=== PATIENT | male | born 1945 | race Caucasian/White ===

== ENCOUNTER 2021-01-19 16:20 | Emergency (ER) | payer MEDICARE, SELFPAY ==
[2021-01-19 16:23] VITALS: BP 166/73; PULSE 93; RESP 17; TEMP 36.3; O2SAT 97; BMI 34.7
--- NOTE | 2021-01-19 16:32 | EKG12_ITS ---
Test Reason : CP Blood Pressure : / mmHG Vent. Rate : 095 BPM Atrial Rate : 095 BPM P-R Int : 180 ms QRS Dur : 096 ms QT Int : 374 ms P-R-T Axes : 061 009 030 degrees QTc Int : 469 ms Normal sinus rhythm Nonspecific ST abnormality Abnormal ECG Confirmed by VANESSA KIM, MAGI ([id number]), copy editor SOPHIA ROB ([id number]) on 01/24/2021 8:28:05 AM Referred By: JUAN JOSE Confirmed By:KALIE MENDEZ MD
--- NOTE | 2021-01-19 16:35 | NURSING ---
NO OLD EKGS
--- NOTE | 2021-01-19 16:43 | RAD_ITS ---
STUDY: X-RAY CHEST REASON FOR EXAM: Male, 75 years old. EPIGASTRIC SHARP CHEST PAIN STARTING THIS AM. TECHNIQUE: Single AP portable view of the chest. COMPARISON: None. FINDINGS: The lungs are clear and expanded. There is no demonstrated pleural abnormality. Normal size heart. Normal mediastinum and nidhi. Normal visualized pulmonary arteries. There is atherosclerotic calcification of the aortic arch with tortuosity. There are diffuse degenerative changes of the visualized thoracic spine. There is degenerative osteoarthritis of the bilateral shoulders. There is no demonstrated abnormality of the visualized soft tissue structures of the upper abdomen. RAD/Chest 1 View (Portable) IMPRESSION: Degenerative changes, as described above. No demonstrated acute cardiopulmonary process. Electronically Signed: Cyrus Prather MD at 17:18 EDT , Service support ,
--- NOTE | 2021-01-19 16:44 | ED.VIS.CHEST ---
HPI History of Present Illness Chief Complaint: Chest Pain Narrative Narrative: Patient presents from his primary care physician's office to be evaluated for chest pain that he had this morning at around 9:00 when he woke up. This was over 7 hours ago. He denies any significant past medical history. He states yesterday in the evening he felt minimally short of breath after he walked up a flight of stairs. He denies any fevers or chills. No cough. This morning when he woke up, he states he had chest pain. He described it as both sharp and stabbing, and dull and achy. It only lasted a few seconds, or perhaps half a minute as he states. He denies any leg swelling. No nausea or vomiting. No diaphoresis. He had an appointment with his primary care physician today/this afternoon and he mentioned the chest pain that was very fleeting. He was sent to the emergency department to have it evaluated. He is currently pain-free. He denied any exacerbating or alleviating factors. [facility] Medical History (Updated 01/19/21 @ 19:21 by Yusef Hilario MD) Hypothyroidism Allergy/AdvReac Type Severity Reaction Status Date / Time No Known Allergies Allergy Verified 01/19/21 16:23 Social History Smoking Status: Never smoker ROS ROS ED ROS Narrative Constitutional: No fever, no chills. HEENT: No sore throat. No neck pain. No loss of vision. No rhinorrhea. Cardiovascular: Positive chest pain. No radiation. Only lasted up to half a minute. Currently asymptomatic. No palpitations. No pedal edema. Respiratory: No cough, no shortness of breath. Abdominal: No abdominal pain. No nausea. No vomiting. Genitourinary: No dysuria. No hematuria. Musculoskeletal: No myalgias. No arthralgias. Neurologic: No headaches. No dizziness. No lightheadedness. No paresthesias. Skin: No rash. No change in color. Psychiatric: No depression. No anxiety. EXAM Physical Exam Narrative Exam Narrative: Afebrile. Vital signs noted. HEENT: Normocephalic. Atraumatic. PERRL, EOMI. Neck soft and supple. No point tenderness or step off. Cardiovascular: Regular rate and rhythm. No murmurs, rubs, or gallops appreciated. Respiratory: No tachypnea. Lungs clear to auscultation bilaterally. Gastrointestinal: Abdomen soft, nontender, with normoactive bowel sounds. No rebound or guarding. Neurological: Awake. Alert. Nonfocal, nonlateralizing. Skin: No rash. Normal color. No pallor. Musculoskeletal: No pedal edema. Full range of motion extremities. Const Vital Signs: 01/19/21 16:23 01/19/21 16:53 01/19/21 19:00 Temperature 97.4 F L Temperature Source Temporal Pulse Rate 93 72 Respiratory Rate 17 Respiratory Effort Normal Non-Labored Blood Pressure 166/73 H 143/79 H Blood Pressure Mean 104 100 Pulse Ox 97 98 96 Oxygen Delivery Method Room Air Room Air Room Air MDM MDM MDM Narrative Medical decision making narrative: EKG demonstrates normal sinus rhythm at 95 bpm without ectopy or acute ST changes. No evidence of acute STEMI. Nursing protocol was instituted. We will obtain a chest x-ray and laboratory work. CBC is grossly normal with normal white count of 5.2, hemoglobin stable at 14.9, hematocrit 44. Basic metabolic panel is grossly unremarkable suffer elevated BUN of 21.6 and glucose appropriately elevated at 142. Initial high-sensitivity troponin is negative at 5. Although this is a 6-hour troponin, for good measure I did add a 2-hour troponin and it is also negative at 5. Chest x-ray shows degenerative changes but no acute cardiopulmonary process. At this point in time, I feel he be discharged safely home with follow-up back to his primary care provider. Patient feels well and would like to be discharged. Return instructions to the emergency department were reviewed. Disposition is discharged home in stable condition. Lab Data Attestation: I reviewed the patient's lab results. Labs: Laboratory Results - last 24 hr 01/19/21 01/19/21 01/19/21 16:30 16:30 18:29 WBC 5.2 RBC 5.07 Hgb 14.9 Hct 44.0 MCV 86.8 MCH 29.4 MCHC 33.9 RDW Std Deviation 39.8 RDW Coeff of Whit 12.8 Plt Count 209 MPV 9.9 Immature Gran % (Auto) 0.200 Neut % (Auto) 57.1 Lymph % (Auto) 28.1 Grand % (Auto) 12.3 H Eos % (Auto) 1.5 Baso % (Auto) 0.8 Absolute Neuts (auto) 3.0 Absolute Lymphs (auto) 1.46 Nucleated RBC % 0 Sodium 140 Potassium 3.7 Chloride 106 Carbon Dioxide 29.0 Anion Gap 5 BUN 19 H Creatinine 0.88 Estim Creat Clear Calc 63.44 Est GFR (MDRD) Af Amer 108 Est GFR (MDRD) Non-Af 89 BUN/Creatinine Ratio 21.6 H Glucose 142 H Calcium 9.1 Troponin I High Sens 5 5 Radiography Diagnostic Testing: Radiology Impression Chest X-Ray 01/19/21 16:43 IMPRESSION: Degenerative changes, as described above. No demonstrated acute cardiopulmonary process. Electronically Signed: Cyrus Prather MD at 17:18 EDT , Service support , Discharge Plan Triage Chief Complaint: Chest Pain ED Provider: Yusef Hilario Dx/Rx/DC Orders Clinical Impression: Chest pain Instructions: ED Chest Pain, Noncardiac, ED Chest Pain, Uncertain Cause Primary Care Provider: Michael Kellogg Referrals: Michael Kellogg MD [Primary Care Provider] - 01/23/21 Disposition Disposition: Home, Self Care
[2021-01-19 16:46] LABS: Absolute Lymphocyte Count 1.46 X10^3/uL (0.83-4.51); Basophil# 0.04 X10^3/uL; Basophil% 0.8 % (0-1); Eosinophil# 0.08 X10^3/uL; Eosinophils% 1.5 % (0-5); Hemoglobin 14.9 g/dL (13.0-16.5); Lymphocyte # 1.46 X10^3/ul (0.83-4.51); Lymphocyte % 28.1 % (19-41); Mean Corp Hgb Conc 33.9 g/dL (32-36); Mean Corpuscular Hgb 29.4 pg (27.0-32.0); Mean Corpuscular Volume 86.8 fL (80-94); Mean Platelet Vol. 9.9 fl (6.2-12.0); Monocyte# 0.64 X10^3/uL; Monocyte% 12.3 % (0-10); NRBC Flagged by Analyzer 0 % (0-5); Neutrophil # 2.96 X10^3/uL (2.7-7.7); Neutrophil % 57.1 % (47-70); Platelet Count 209 K/mm3 (150-450); RBC Distribution Width CV 12.8 % (11.6-14.6); RBC Distribution Width SD 39.8 fl (35.1-43.9); Red Blood Count 5.07 M/mm3 (4.6-6.2); White Blood Count 5.2 K/mm3 (4.4-11.0)
[2021-01-19 16:53] VITALS: O2SAT 98
[2021-01-19 17:15] LABS: Anion Gap 5 (5-15); BUN 19 mg/dL (7-18); BUN/Creat Ratio 21.6 RATIO (10-20); Calcium,Total 9.1 mg/dL (8.5-10.1); Chloride 106 mmol/L (98-107); Creatinine, Serum 0.88 mg/dL (0.70-1.30); EST Glomerular Filtration Rate 89 mL/min (>60); Est Glom Filt Rate - Afr Amer 108 mL/min (>60); Estimated Creatinine Clearance 63.44 ml/min; Glucose 142 mg/dL (74-106); Potassium 3.7 mmol/L (3.5-5.1); Sodium Level 140 mmol/L (136-145); Troponin-I HS 5 pg/mL (3.0-78.0)
[2021-01-19 18:48] LABS: Troponin-I HS 5 pg/mL (3.0-78.0)
[2021-01-19 19:00] VITALS: BP 143/79; PULSE 72; O2SAT 96
== END 2021-01-19 19:29 | disposition home or self-care (01) ==
PROVIDERS: Emergency Provider Emergency Medicine; PCP Internal Medicine
DX: R07.9 Chest pain, unspecified (principal); R06.02 Shortness of breath
CPT/HCPCS: 71045; 80048; 84484; 85025; 93005; 99284; A4216

== ENCOUNTER → 2021-05-10 15:49 | Outpatient (CLI) | payer MEDICARE, OTHER, SELFPAY ==
[2021-05-10 16:54] LABS: Absolute Lymphocyte Count 1.47 X10^3/uL (0.83-4.51); Basophil# 0.02 X10^3/uL; Basophil% 0.3 % (0-1); Eosinophil# 0.09 X10^3/uL; Eosinophils% 1.4 % (0-5); Hematocrit 44.2 % (40-54); Hemoglobin 15.2 g/dL (13.0-16.5); Lymphocyte # 1.47 X10^3/ul (0.83-4.51); Lymphocyte % 23.6 % (19-41); Mean Corp Hgb Conc 34.4 g/dL (32-36); Mean Corpuscular Hgb 29.7 pg (27.0-32.0); Mean Corpuscular Volume 86.5 fL (80-94); Mean Platelet Vol. 10.1 fl (6.2-12.0); Monocyte# 0.65 X10^3/uL; Monocyte% 10.4 % (0-10); NRBC Flagged by Analyzer 0 % (0-5); Neutrophil % 64.1 % (47-70); Platelet Count 240 K/mm3 (150-450); RBC Distribution Width CV 12.8 % (11.6-14.6); RBC Distribution Width SD 40.4 fl (35.1-43.9); Red Blood Count 5.11 M/mm3 (4.6-6.2); White Blood Count 6.2 K/mm3 (4.4-11.0)
[2021-05-10 16:56] LABS: Anion Gap 9 (5-15); BUN 17 mg/dL (7-18); BUN/Creat Ratio 17.6 RATIO (10-20); Calcium,Total 9.5 mg/dL (8.5-10.1); Chloride 104 mmol/L (98-107); Creatinine, Serum 0.97 mg/dL (0.70-1.30); EST Glomerular Filtration Rate 80 mL/min (>60); Est Glom Filt Rate - Afr Amer 97 mL/min (>60); Glucose 100 mg/dL (74-106); Potassium 3.9 mmol/L (3.5-5.1); Sodium Level 142 mmol/L (136-145)
[2021-05-10 16:57] LABS: Prothrombin Time (Protime)PT. 12.8 SECONDS (11.7-14.9)
[2021-05-10 16:58] LABS: Partial Thromboplast Time 26.2 Seconds (24.1-36.2)
== END ==
PROVIDERS: PCP Internal Medicine; Referring Provider Internal Medicine Cardiovascular Disease; Visit Provider Internal Medicine Cardiovascular Disease
DX: R09.89 Other specified symptoms and signs involving the circulatory and respiratory systems (principal); R94.39 Abnormal result of other cardiovascular function study; R07.9 Chest pain, unspecified; I35.0 Nonrheumatic aortic (valve) stenosis; I10 Essential (primary) hypertension; E78.2 Mixed hyperlipidemia
CPT/HCPCS: 80048; 85025; 85610; 85730

== ENCOUNTER → 2021-05-17 12:50 | Outpatient (CLI) | payer MEDICARE, OTHER, SELFPAY ==
--- NOTE | 2021-05-17 13:03 | CDU_ITS ---
Reason For Study: CAROTID BRUIT Rt. Velocities/BP Lt. Velocities/BP Prox CCA 86.5/16.0 cm/sec. Prox CCA 103.8/21.3 cm/sec. Mid CCA 86.5/21.3 cm/sec. Mid CCA 152.6/35.9 cm/sec. Dist CCA 100.8/23.9 cm/sec. Dist CCA 159.9/35.9 cm/sec. Prox ICA 152.7/58.4 cm/sec. Prox ICA 174.0/48.9 cm/sec. Mid ICA 192.2/49.6 cm/sec. Mid ICA 122.2/41.8 cm/sec. Dist ICA 157.2/34.2 cm/sec. Dist ICA 89.3/29.0 cm/sec. Rt. ICA/CCA = 192.2/100.8=1.9. Lt. ICA/CCA = 174.0/159.9=1.1. Prox ECA 146.7/20.6 cm/sec. Prox ECA 103.1/14.5 cm/sec. Rt. Vert. 49.0/14.6 cm/sec. Lt. Vert. 60.3/12.0 cm/sec. Right Extracranial There is homogeneous, smooth atherosclerotic plaque noted in the right common carotid artery. There is heterogeneous, irregular atherosclerotic plaque noted in the right internal carotid artery. The tortuous nature of the right internal carotid artery may result in flow velocities overestimating the degree of stenosis. There is homogeneous, smooth atherosclerotic plaque noted in the right external carotid artery. Antegrade flow is noted in the right vertebral artery. Left Extracranial There is homogeneous, smooth atherosclerotic plaque noted in the left common carotid artery. There is heterogeneous, irregular atherosclerotic plaque noted in the left internal carotid artery. There is intimal thickening but no significant atherosclerotic plaque noted in the left external carotid artery. Antegrade flow is noted in the left vertebral artery. Procedure Carotid Duplex [id number]. This is a Carotid Duplex examination using B-mode, color flow and specral Doppler. The study was technically difficult. Due to body habitus. Exam performed in department. VL/Carotid Duplex Ultrasound Interpretation Summary Moderate (50-69%) stenosis right extracranial internal carotid. Moderate (50-69 %) stenosis left extracranial internal carotid. Flow within the vertebral arteries is antegrade bilaterally. Ordering Physician: Evans Leblanc Referring Physician: Michael Kellogg Performed By: Haylee Michaud, LU, RVT
== END ==
PROVIDERS: PCP Internal Medicine; Referring Provider Internal Medicine Cardiovascular Disease; Visit Provider Internal Medicine Cardiovascular Disease
DX: R09.89 Other specified symptoms and signs involving the circulatory and respiratory systems (principal); R94.39 Abnormal result of other cardiovascular function study; I35.0 Nonrheumatic aortic (valve) stenosis; E78.2 Mixed hyperlipidemia; R07.9 Chest pain, unspecified; I10 Essential (primary) hypertension
CPT/HCPCS: 93880

== ENCOUNTER 2021-06-02 07:21 | Day surgery (SDC) | payer MEDICARE, OTHER, SELFPAY ==
[2021-06-01 08:24] VITALS: BMI 33.0
--- NOTE | 2021-06-02 07:55 | PCM.HP.BLA ---
History and Physical Date of Admission: 06/02/21 [facility] [id number] [place], [place] [phone] OFFICE VISITDate of Service: 05/10/21 MR#:[id number]: Carlos CONTRERAS #:[id number] Provider:Dr. Evans Leblanc MDAge/Sex: 75/M Location:[facility]:Signed HPI HPI History of Present Illness Surgical H&P: Yes Details: This is a 75-year-old male originally from [place] who presents for outpatient cardiovascular consultation based upon concerns of a history of chest discomfort, cardiac murmur, and an abnormal [facility] echocardiogram and stress nuclear imaging study. The patient states that he has a home outside of [facility]. He has been staying in the [facility]. He has a home near [place], [place] where he spends the [place]. He visits his daughter who lives locally. He states that he had complained of some centralized chest aching which he thought may be related to acid reflux. This prompted a [facility] evaluation which included in January 2021 a stress nuclear imaging study. It appears that the patient exercised for 5 minutes achieving a peak heart rate of 134 bpm - 94% predicted maximal heart rate and a peak blood pressure of 170/82 mmHg and a peak metabolic capacity of 5 metabolic equivalents. His [place] treadmill score was reported at 5.0. His myocardial perfusion study stated that there was a perfusion defect in the mid inferolateral segment and all the remaining segments showed normal perfusion. It was listed as an abnormal study. There was notation that his left ventricular systolic function was normal. It appears that the patient has also undergone a [facility] transthoracic echocardiogram on 09-27-2020. At that time the left ventricle was reported as having normal systolic function with an LVEF of 56%, the right ventricle had normal size and systolic function, there was trace TR, the aortic valve was referred to as being mild aortic valve stenosis caused by a calcified valve with no aortic valve regurgitation at the time. The aortic valve area appears to been reported at approximately 1.2 cm?. The aortic root was reported as borderline dilated with the mid a sending aorta reported at 3.9 cm. It appears that he had a [facility] transthoracic echocardiogram in October 2018. At that point in time the left ventricle was normal with an LVEF of 60%, the aortic valve was reported with mild aortic valve stenosis with an aortic valve area 1.7 cm? and the aortic root was reported mildly dilated at 4.1 cm. He states that he return to [place] for an outpatient [facility] cardiology appointment to consider further evaluation of his stress test that was performed in January of this year. He states his appointment was canceled. Thus he sought outpatient evaluation with this office. He states that his discomfort was a somewhat centralized aching sensation. It did not necessarily radiate. It may have been associated with an element of shortness of breath/dyspnea. There was no nausea, emesis, or diaphoresis. His symptoms were more so with exertion as opposed to rest. He states he was given nitroglycerin sublingual by his [facility] physicians to use but he has not had to use them. He has not had any orthopnea or PND or ongoing peripheral pitting edema. There is been no near syncope or syncope. He had an ECG in the office today. He was noted to be in sinus rhythm with a low voltage QRS in the limb leads. There were no acute ECG changes. He states he does take his aspirin as well as his atorvastatin. Intake Vital Signs 05/10/21 14:15 Height 5 ft 7 in Weight: 211 lb 5 oz BMI 33.0 BP 142/78 H Blood Pressure Location Lt brachial Position Sitting Respiration 16 Pulse 80 Pulse Source Auscultation Intake Visit Reasons: ABN STRESS/REF. COLIN Office Administration Instructor Required: No Accompanied by: Self Allergies No Known Allergies Allergy (Verified 01/19/21 16:23) Medications aspirin 81 mg tablet,delayed release 81 mg PO DAILY 05/10/21 [History Confirmed 05/10/21] atorvastatin 20 mg tablet 20 mg PO DAILY #1 tab 05/10/21 [Rx Confirmed 05/10/21] fluticasone propionate 50 mcg/actuation nasal spray,suspension 2 spray INTRANASAL DAILY 05/10/21 [History Confirmed 05/10/21] levothyroxine 100 mcg tablet 100 mcg PO DAILY 05/10/21 [History Confirmed 05/10/21] nitroglycerin 0.4 mg sublingual tablet 0.4 mg SUBLINGUAL Q5-15M PRN 05/10/21 [History Confirmed 05/10/21] pantoprazole 40 mg tablet,delayed release 40 mg PO DAILY 05/10/21 [History Confirmed 05/10/21] [facility] Medical History (Updated 05/10/21 @ 15:[address] Evans Leblanc MD) Abnormal stress test Acquired hypothyroidism Bruit of left carotid artery Essential hypertension GERD (gastroesophageal reflux disease) Hypothyroidism Mixed hyperlipidemia Nonrheumatic aortic (valve) stenosis Surgical History History of appendectomy Family History Brother CAD (coronary artery disease) Myocardial infarction Social History Smoking Status: Never smoker alcohol intake: never details: occasional substance use type: does not use caffeine: Yes Type: coffee Number of servings: 2 ROS Const Const: Negative for fatigue, weakness, frequent falls, excessive sweating, weight gain or weight loss Eyes Eyes: Negative for transient loss of vision, blurry vision or change in vision ENT ENT: Negative for dizziness or balance problems Cardio Chest Pain: Yes (x1 episode) Character: other (mild pain) Onset: exercise Location: mid sternal Duration: brief Relieving: rest Palpitations: No Edema: None Muscle aches with walking: None Resp Respiratory: Positive for SOB with activity (occasional); Negative for SOB at rest GI GI: Negative vomiting or vomiting blood/hematemesis : Negative for hematuria Musc Musc: Negative for muscle aches/ myalgia, muscle weakness, joint pain or balance problems Skin Skin: Negative non-healing lesions or rash Neuro Neuro: Negative for dizziness, lightheadedness, orthostatic symptoms, frequent falls, weakness or blurry vision Julian Hematologic/Lymphatic: Negative for easy bleeding Endo Endo: Negative for fatigue or excessive sweating Psych Psych: Negative for anxiety or depression Allergy Allergy/Immunology: Negative for hives and Negative for rash Cardiology Exam Const Appearance: cooperative, healthy appearing, comfortable, no acute distress, well developed and well groomed Nutritional Appearance: overweight Orientation: alert, awake and oriented x3 Head Head: normal to inspection and normocephalic Ears: hearing grossly normal bilaterally Nose: external nose normal Face and Sinus: face symmetric Eyes Eyelids: eyelids normal Conjunctivae: conjunctivae normal Pupils: PERRL EOM: EOM intact bilaterally Neck Neck: normal visual inspection Carotids: normal carotid upstroke carotid endarterectomy: Left Chest Chest inspection: normal inspection of the chest, symmetric chest movement and normal respiratory effort Auscultation: Bilateral: Clear to Auscultation Cardio Palpation: normal PMI Rate: regular rate Rhythm: regular rhythm Heart sounds: S1 normal, S2 normal and murmur Murmur: Grade 3/6, harsh, mid systolic, crescendo and radiates to carotids GI GI: normal to inspection, soft and bowel sounds present Neuro General: patient alert, patient awake, patient oriented x3 and moves all extremities Skin Skin: no rashes or lesions noted Extremities Pulses: Normal: Right Radial Pulse and Left Radial Pulse Lower Extremity Edema: None: Bilateral Psych Psychological: normal affect Supplemental Info Supplemental Information Labs: No Data to Display Diagnostics: Electrocardiogram Chest X-Ray Pulmonary: No Data to Display Assessment and Plan Assessment and Plan (1) Chest pain: Status: Acute Orders: Orders: Left Heart Cath/COR/LV Percut Today Basic Metabolic Profile (BMP) Today Partial Thromboplast Time Today Prothrombin Time w/INR Today CBC W/Diff, Automated Today Carotid Duplex Ultrasound Today Plan - Dr. Evans Leblanc MD: The patient has had chest discomfort. He does describe chest discomfort which does sound suspicious for angina pectoris with exertional activity. He has already undergone [facility] noninvasive valuation with the findings as noted above. From a cardiac standpoint it would be reasonable to continue his medical management and proceed with further evaluation with diagnostic cardiac catheterization. The procedure and risk were discussed with him. He was agreeable to this approach. (2) Abnormal stress test: Status: Acute Orders: Orders: 12 Lead EKG performed by [facility] [place] Today Left Heart Cath/COR/LV Percut Today Basic Metabolic Profile (BMP) Today Partial Thromboplast Time Today Prothrombin Time w/INR Today CBC W/Diff, Automated Today Carotid Duplex Ultrasound Today Plan - Dr. Evans Leblanc MD: Again his stress myocardial perfusion study performed at [facility] was considered abnormal. He will continue medical therapy and proceed with further evaluation with diagnostic cardiac catheterization. (3) Nonrheumatic aortic (valve) stenosis: Status: Acute Comment: Mild per ECHO 09/27/20 Orders: Orders: Left Heart Cath/COR/LV Percut Today Basic Metabolic Profile (BMP) Today Partial Thromboplast Time Today Prothrombin Time w/INR Today CBC W/Diff, Automated Today Carotid Duplex Ultrasound Today Plan - Dr. Evans Leblanc MD: He does have what appears to be an element of aortic valve stenosis. Based upon his 2 previous [facility] echocardiograms it appears to be mild. This will need to be followed over time by history, exam, and echocardiographic studies. (4) Mixed hyperlipidemia: Status: Acute Orders: Orders: 12 Lead EKG performed by [facility] Today Left Heart Cath/COR/LV Percut Today Basic Metabolic Profile (BMP) Today Partial Thromboplast Time Today Prothrombin Time w/INR Today CBC W/Diff, Automated Today Carotid Duplex Ultrasound Today Plan - Dr. Evans Leblanc MD: He will remain on his lipid-lowering therapy. (5) Essential hypertension: Status: Acute Orders: Orders: 12 Lead EKG performed by [facility] Today Left Heart Cath/COR/LV Percut Today Basic Metabolic Profile (BMP) Today Partial Thromboplast Time Today Prothrombin Time w/INR Today CBC W/Diff, Automated Today Carotid Duplex Ultrasound Today Plan - Dr. Evans Leblanc MD: He had that his last [facility] outpatient visit on 03-06-2021 recorded his blood pressure to be 131/73 mmHg. That visit was with his primary care physician. He will continue to monitor his blood pressure for any significant changes that would warrant additional medical management. (6) Bruit of left carotid artery: Status: Acute Orders: Orders: Left Heart Cath/COR/LV Percut Today Basic Metabolic Profile (BMP) Today Partial Thromboplast Time Today Prothrombin Time w/INR Today CBC W/Diff, Automated Today Carotid Duplex Ultrasound Today Plan - Dr. Evans Leblanc MD: There is concern as to whether or not he has a left carotid artery bruit separate from extension of his cardiac murmur. Thus it was felt prudent that he undergo further evaluation with a carotid artery duplex study. Plan Details Additional Comments: The above was discussed with him at great length. He was agreeable to the aforementioned evaluation and care plan. Thank you for allowing me to participate in the care of your patient. Please don't hesitate to call if any issues arise. This note was generated using a voice recognition system and there may be incorrect words, spelling or punctuation that were not noted when reviewing the office note prior to saving. Follow Up: 05/10/21 (Pending Test Results ) COVID (Procedure Consent) Procedure Criteria Procedure Criteria: Yes Elective The surgeon/proceduralist and patient have discussed in detail the risk of exposure to and/or potential harm posed by the COVID-19 virus with having a surgery/procedure at this time versus the risk of delaying the surgery/procedure. It is not possible to know either the risk of delaying the surgery or procedure or chance of getting an infection with perfect accuracy, but a joint decision was made between the patient and the surgeon/proceduralist to proceed at this time with the scheduled surgery/procedure as indicated on the consent form. Coding Level of Care Code Off vis,new,level 5 Diagnoses Chest pain R07.9 Abnormal stress test R94.39 Nonrheumatic aortic (valve) stenosis I35.0 Mixed hyperlipidemia E78.2 Essential hypertension I10 Bruit of left carotid artery R09.89 Coding Level of Care Code Off vis,new,level 5 Diagnoses Chest pain R07.9 Abnormal stress test R94.39 Nonrheumatic aortic (valve) stenosis I35.0 Mixed hyperlipidemia E78.2 Essential hypertension I10 Bruit of left carotid artery R09.89 05/10/21 1539<Electronically signed by Evans Leblanc MD>Date Evans Leblanc MD Cosigner Signature:Date (if applicable) CC: Dr. Michael eKllogg MD ~ Assessment & Plan Addt'l Comments Update: The patient's clinical history/previous objective findings were reviewed. The plan at this time is to proceed with further evaluation with diagnostic cardiac catheterization (right/left) secondary to the aforementioned clinical concerns, abnormal stress nuclear imaging study, and abnormal transthoracic echocardiogram demonstrating findings of valvular heart disease with aortic valve stenosis. The procedure and risk were discussed with the patient. He was agreeable to this approach.
[2021-06-02 09:46] LABS: Base Excess 2 mmol/L (-2 to +2); Bicarbonate 26.2 mmol/L (22-26); Blood Gas Specimen Type ART; PO2 69 mmHG (75-100); SO2 94 % (95-99); Total Carbon Dioxide 28 mmol/L; pCO2 39.8 mmHg (35-45); pH 7.43 (7.35-7.45)
[2021-06-02 09:50] LABS: Blood Gas Specimen Type VEN; VBG BASE EXCESS 3 mmol/L (-1.0-3.5); VBG Bicarbonate 28 mmol/L (22-26); VBG PO2 41 mmHg (25-40); VBG SO2 74 % (50-70); VBG TCO2 30 mmol/L (23-33); VBG pCO2 48.3 mmHg (41-51); VBG pH 7.37 (7.32-7.42)
[2021-06-02 09:50] LABS: Blood Gas Specimen Type VEN; VBG BASE EXCESS 3 mmol/L (-1.0-3.5); VBG Bicarbonate 28 mmol/L (22-26); VBG PO2 42 mmHg (25-40); VBG SO2 75 % (50-70); VBG TCO2 30 mmol/L (23-33); VBG pCO2 47.7 mmHg (41-51); VBG pH 7.38 (7.32-7.42)
[2021-06-02 10:00] LABS: Blood Gas Specimen Type VEN; VBG BASE EXCESS 3 mmol/L (-1.0-3.5); VBG Bicarbonate 28 mmol/L (22-26); VBG PO2 41 mmHg (25-40); VBG SO2 75 % (50-70); VBG TCO2 29 mmol/L (23-33); VBG pCO2 45.5 mmHg (41-51)
--- NOTE | 2021-06-02 12:03 | CL.D_ITS ---
Patient Name: ERICK CONTRERAS Study Date: 06/02/2021 Performing: Evans Leblanc MD Ht: 66.92 inches 170 cm : 1945 Wt: 211.64 lbs 96 kg Age: 75 Gender: male BSA: 2.07 PROCEDURE(S) PERFORMED [id number])RHC/LHC/COR/LV CLINICAL PROFILE AND INDICATIONS Indications: Worsening Angina, Valvular Disease, Suspected CAD Heart Failure: None Stress/Imaging Date: 02/06/2021tress Test with SPECT MPI: Positive Intermediate Risk Angina Classification Anginal Classification w/in 2 Weeks: CCS III CAD Presentations: Other: worsening angina CONCLUSIONS Right heart pressures - Normal Intracardiac shunting: None Normal Left Ventricular End Diastolic Pressure Normal LV size, wall motion,and systolic function LVEF: by LV gram 60 % [place] Multivessel CAD Aortic Valve Stenosis- Mild - Moderate Aortic Root dilated RECOMMENDATIONS Risk factor modification Medical therapy Referred for immediate PCI Comment: The aforementioned procedure was performed with the assistance of Dr. Barton of [facility] DESCRIPTION OF PROCEDURE The patient arrived to the procedure lab. The risks and benefits of the procedure as well as a full d escription of our services here and current unavailability of surgical backup were fully explained to the patient and/or their significant other prior to the catheterization. The Timeout was completed, verifying the correct patient and procedure. The patient's procedural site was prepped and draped in the usual fashion. Local anesthetic was given subcutaneously to right radial region with Lidocaine 2% . Using a modified Seldinger technique, arterial access was obtained via the right radial artery, a 6 Fr sheath was inserted. Venous access was obtained via the right brachiocephalic vein, a 7Fr sheath w as inserted. A 7Fr thermal dilution catheter was inserted and right heart pressures were recorded, it was then advanced to PA position for cardiac outputs. O2 saturations were then obtained. Thermal dil ution cardiac outputs were then recorded. Left Ventriculography was performed in KANG projection using a 5 Fr. Pigtail catheter. Simultaneous pressures were then recorded. LV to AO pullba ck pressures were then recorded. Left Coronary Artery selective angiography was performed in multiple views using a 5 Fr. Jl 4 catheter. Right Coronary Artery selective angiography was then performed in multiple views using a 5 Fr. JR 4 catheter.The arterial sheath was pulled and a TR Band was applied for hemostasis 12cc air. The venous sheath was then pulled and manual compression applied until hemos tasis achieved CORONARY ANGIOGRAPHY DOMINANCE: Left Dominant LEFT HEART ASSESSMENT Left Ventricular Ejection Fraction: by LV Gram 60 % Normal LV wall motion Normal Left Ventricular End Diastolic Pressure LVEDP: 12 mmHg RIGHT HEART ASSESSMENT Thermal CO: 6.61 Thermal CI: 3.19 Neema CO: 6.66 Neema CI: 3.22 PW: 03/28 6 PA: 9 16 RV: 29/0 6 RA: 7 3 PVR: 121 SVR: 1150 Aortic Valve Area: 1.56 Aortic Valve Index: 0.75 Aortic Valve Mean Gradient: 18.7 Mitral Valve Area: 3.17 Mitral Valve index: 1.53 Mitral Valve Mean Gradient: 10.8 Right Heart pressures - normal Intracardiac shunting: None LEFT MAIN: Mild calcification, distal: eccentric: 25 % Stenosis LEFT ANTERIOR DESCENDING ARTERY: PROX LAD: Mild luminal irregularities, 50 % Stenosis, aneurysmal dilatation MID LAD: Mild luminal irregularities, s/p aneurysmal dilatation: 50 % Stenosis CIRCUMFLEX ARTERY: PROX CIRC: Mild luminal irregularities MID CIRC: Mild luminal irregularities DISTAL CIRC: 95 % Stenosis OM 1: Proximal - Mild luminal irregularities RIGHT CORONARY ARTERY: Mild luminal irregularities VALVE FINDINGS: Aortic Valve Stenosis - mild - moderate AORTIC ROOT: Dilated COMPLICATIONS No Complications PROCEDURE MEDICATIONS Fentanyl 50 mcg IV Versed 1 mg IV Versed 1 mg IV Fentanyl 50 mcg IV Oxygen: 2 L/min via nasal cannula Benadryl 50 mg IV 06/02/2021 11:35:29 Brilinta 180 mg PO @ 06/02/2021 11:53:05 Heparin given IA 06/02/2021 09:50:31 Heparin 5000 unit(s) IV 06/02/2021 10:45:28 Verapamil 2.5mg, Ntg 100mcgs, 3000 units of Heparin given IA 06/02/2021 09:50:31 SUMMARY OF HEMODYNAMIC DATA Time AIR REST ECG 07:54:31 RA 7/5 (3) SV 09:45:32 RV 29/0, 6 09:45:52 PA 12/02 (16) PA 09:46:13 PW 03/28 (6) PV 09:46:27 LV 158/-6, 20 10:13:34 PW 26/23 (19) 10:13:34 LV 150/-12, 12 10:19:02 PW 18/13 (9) 10:19:02 LV 149/-16, 9 10:19:12 PW 13/4 (7) 10:19:12 AO 130/71 (98) SA 10:21:01 LV 150/-9, 14 10:21:01 AO 133/72 (101) 10:21:07 LV 152/-11, 12 10:21:07 LV 137/-6, 11 10:23:45 AO 125/60 (87) 10:24:08 LVp 131/0, 0 10:24:08 AO 135/77 (104) 10:24:13 AOp 129/70 (98) 10:24:13 PA 29/12 (20) 10:26:05 RV 29/9, 12 10:26:16 RA 10/7 (8) 10:26:29 Valve Area (c P-P/ms Time AIR REST Mitral 3.17 10.8 mn/196 ms 10:19:12 Aortic 1.56 18.7 mn/267 ms19.0 pk/267 ms 10:21:07 Type SV CO (l/m) CI (l/m/ HR Time AIR REST Thermal 71.80 6.61 3.19 92 07:54:31 Neema 72.40 6.66 3.22 92 07:54:31 Label % O2 Pres/Loc Time AIR REST SVC 75 10:09:04 PA 75 PA 10:09:12 AO 94 PV 10:09:18 RA 74 SV 10:09:34 Signed By Evans Leblanc MD On 06/02/2021 12:02:49 Evans Leblanc MD
--- NOTE | 2021-06-05 10:24 | CL.I_ITS ---
Patient Name: ERICK CONTRERAS Study Date: 06/02/2021 Performing: Marisa Barton MD Ht: 67 inches 170 cm : 1945 Wt: 211.9 lbs 96 kg Age: 75 Gender: male BSA: 2.07 PROCEDURE(S) PERFORMED IC12-(23616/C9600)DORIS W/WO PTCA, SINGLE CORONARY ARTERY CLINICAL PROFILE AND CO-MORBIDITIES Indications: Worsening Angina, Valvular Disease, Suspected CAD Heart Failure: None Stress/Imaging Date: 02/06/2021 Stress Test with SPECT MPI: Positive Intermediate Risk Angina Classification Anginal Classification w/in 2 Weeks: CCS III CAD Presentations: Other: worsening angina CONCLUSIONS Unsuccessful PTCA of dLCX RECOMMENDATIONS DESCRIPTION OF PROCEDURE The patient arrived to the procedure lab. The risks and benefits of the procedure as well as a full d escription of our services here and current unavailability of surgical backup were fully explained to the patient and/or their significant other prior to the catheterization. The Timeout was completed, verifying the correct patient and procedure. The patient's procedural site was prepped and draped in the usual fashion. Local anesthetic was given subcutaneously to right radial region with Lidocaine 2% Using a modified Seldinger technique,arterial access was obtained via the right radial artery, a 6Fr sheath was inserted.Venous access was obtained via the right brachiocephalic vein, a 7Fr sheath was inserted. A 7Fr thermal dilution catheter was inserted and right heart pressures were recorded, it wa s then advanced to PA position for cardiac outputs. O2 saturations were then obtained. Thermal diluti on cardiac outputs were then recorded. Left Ventriculography was performed in KANG projection using a 5 Fr. Pigtail catheter. Simultaneous pressures were then recorded. LV to AO pullba ck pressures were then recorded. Left Coronary Artery selective angiography was performed in multiple views using a 5 Fr. Jl 4 catheter. Right Coronary Artery selective angiography was then performed in multiple views using a 5 Fr. JR 4 catheter. xb3.0 Guide catheter was inserted and engaged into the LCA. BMW Guide wire was advanced to the Ci rcumflex. emerge 2x12 Balloon catheter was inserted. emerge 1.5x15 Balloon catheter was inserted. 1.5 x15 emerge Balloon catheter was inserted. 1.2x15 emerge Balloon catheter was inserted. post angiogram performed ^FreeText^ The arterial sheath was pulled and a TR Band was applied for hemostasis 12cc air. The venous sheath was then pulled and manual compression applied until hemostasis achieved INTERVENTION INFORMATION LESION SITE: Circumflex (Distal) Lesion Complexity: High/C, chronic total occlusion: No, lesion at bifurcation: No, thrombus present: No, lesion length: 12 mm, culprit lesion: Yes, Previously treated lesion: No Pre Stenosis: 99 % Pre intervention TEMO flow: 3 PROCEDURE: Balloon Angioplasty - unsuccessful as the balloon did not cross We were not able to cross the lesion with even a 1.25mm balloon despite using a guideliner inserted a ll the way to the lesion. Post Stenosis: 99 % Post intervention TEMO flow: 3 Lesion Devices: Cardinal 6 Fr XB3.0 100cm Guide Catheter Solorio .014 BMW Tennyson Straight 190cm Uche [employer] EMERGE MR 2.00x12 BALLOON Uche [employer] EMERGE MR 1.50x15 BALLOON [employer] 6 [place] GuideLiner Uche Sci EMERGE MR 1.20x15 BALLOON COMPLICATIONS No Complications PROCEDURE MEDICATIONS Fentanyl 50 mcg IV Versed 1 mg IV Versed 1 mg IV Fentanyl 50 mcg IV Oxygen: 2 L/min via nasal cannula Benadryl 50 mg IV 06/02/2021 11:35:29 Brilinta 180 mg PO @ 06/02/2021 11:53:05 Heparin given IA 06/02/2021 09:50:31 Heparin 5000 unit(s) IV 06/02/2021 10:45:28 Verapamil 2.5mg, Ntg 100mcgs, 3000 units of Heparin given IA 06/02/2021 09:50:31 SUMMARY OF HEMODYNAMIC DATA Time AIR REST ECG 07:54:31 RA 7/5 (3) SV 09:45:32 RV 29/0, 6 09:45:52 PA 26/9 (16) PA 09:46:13 PW 11/9 (6) PV 09:46:27 LV 158/-6, 20 10:13:34 PW / (19) 10:13:34 LV 150/-12, 12 10:19:02 PW 18/13 (9) 10:19:02 LV 149/-16, 9 10:19:12 PW 13/4 (7) 10:19:12 AO 130/71 (98) SA 10:21:01 LV 150/-9, 14 10:21:01 AO 133/72 (101) 10:21:07 LV 152/-11, 12 10:21:07 LV 137/-6, 11 10:23:45 AO 125/60 (87) 10:24:08 LVp 131/0, 0 10:24:08 AO 135/77 (104) 10:24:13 AOp 129/70 (98) 10:24:13 PA 29/12 (20) 10:26:05 RV 29/9, 12 10:26:16 RA 10/7 (8) 10:26:29 RM AIR REST 12:02:59 Valve Area (c P-P/ms Time AIR REST Mitral 3.17 10.8 mn/196 ms 10:19:12 Aortic 1.56 18.7 mn/267 ms19.0 pk/267 ms 10:21:07 Type SV CO (l/m) CI (l/m/ HR Time AIR REST Thermal 71.80 6.61 3.19 92 07:54:31 Neema 72.40 6.66 3.22 92 07:54:31 Label % O2 Pres/Loc Time AIR REST SVC 75 10:09:04 PA 75 PA 10:09:12 AO 94 PV 10:09:18 RA 74 SV 10:09:34 Signed By Marisa Barton MD On 06/05/2021 10:23:47 AM Marisa Barton MD
== END 2021-06-02 23:59 | disposition home or self-care (01) ==
LOC: CLSP 07:26
PROVIDERS: PCP Internal Medicine; Referring Provider Internal Medicine Cardiovascular Disease; Visit Provider Internal Medicine Cardiovascular Disease
DX: I25.110 Atherosclerotic heart disease of native coronary artery with unstable angina pectoris (principal); R07.9 Chest pain, unspecified; R94.39 Abnormal result of other cardiovascular function study; R09.89 Other specified symptoms and signs involving the circulatory and respiratory systems; I35.0 Nonrheumatic aortic (valve) stenosis; E78.2 Mixed hyperlipidemia; I10 Essential (primary) hypertension; E03.9 Hypothyroidism, unspecified; Z79.82 Long term (current) use of aspirin; Z79.899 Other long term (current) drug therapy
CPT/HCPCS: 82803; 92928; 93460; 99152; 99153; J7040; Q9967; C1725; C1751; C1769; C1887; C1894; C9600; J1327

== ENCOUNTER 2022-04-23 20:02 | Inpatient (IN) | payer MEDICARE, OTHER, SELFPAY ==
[2022-04-23 20:05] VITALS: BP 105/60; PULSE 124; RESP 20; TEMP 36.8; O2SAT 92; BMI 35.5
[2022-04-23 20:08] VITALS: BP 105/60; PULSE 124; RESP 20; TEMP 36.8; O2SAT 92
--- NOTE | 2022-04-23 20:45 | EKG12_ITS ---
Test Reason : DYSRHYTHMIA Blood Pressure : / mmHG Vent. Rate : 110 BPM Atrial Rate : 110 BPM P-R Int : 144 ms QRS Dur : 098 ms QT Int : 374 ms P-R-T Axes : 050 001 048 degrees QTc Int : 506 ms Sinus tachycardia Low voltage QRS (Limb Leads) Poor R wave progression Nonspecific T wave abnormality Confirmed by ANTONIO KIM, NEW ([id number]), video editor SOPHIA ROB ([id number]) on 04/25/2022 8:53:14 AM Referred By: SARA Confirmed By:NEW ALVAREZ MD
--- NOTE | 2022-04-23 20:46 | EDS_ITS ---
HPI History of Present Illness Chief Complaint: Shortness of Breath Narrative Narrative: Patient presents with shortness of breath. He recently traveled from [place] on a plane after spending 2 weeks in the hospital and being diagnosed with sarcoma. There is no further differentiation of the cancer. He has no external manifestations of sarcoma. He is been sitting at home with his daughter unable to ambulate, he is quite short of breath. He was seen at PCPs office and sent to the ED he was also tachycardic. Patient is denying pleuritic component. He has no fevers or chills. He does not have a cough. He has significant weakness, and shortness of breath, he cannot ambulate. [facility] Medical History Abnormal stress test Acquired hypothyroidism Atherosclerotic heart disease of [place] coronary artery without angina pectoris Bruit of left carotid artery Essential hypertension GERD (gastroesophageal reflux disease) Hypothyroidism Mixed hyperlipidemia Nonrheumatic aortic (valve) stenosis Sarcomatoid carcinoma of lung Home Medications levothyroxine 100 mcg tablet 100 mcg PO DAILY 05/10/21 [History Last Taken 06/02/21] pantoprazole 40 mg tablet,delayed release 40 mg PO DAILY 05/10/21 [History Last Taken Unknown] amlodipine 2.5 mg tablet 2.5 mg PO DAILY #90 tabs 01/30/22 [Rx Last Taken Unknown] aspirin 81 mg tablet,delayed release (Adult Low Dose Aspirin) 81 mg PO DAILY #90 tabs 01/30/22 [Rx Last Taken Unknown] atorvastatin 40 mg tablet 40 mg PO DAILY #90 tabs 01/30/22 [Rx Last Taken Unknown] clopidogrel 75 mg tablet 75 mg PO DAILY #90 tabs 01/30/22 [Rx Last Taken Unknown] fluticasone propionate 50 mcg/actuation nasal spray,suspension (Allergy Relief (fluticasone)) 2 spray intranasal DAILY PRN allergies 01/30/22 [History Last Taken Unknown] metoprolol tartrate 25 mg tablet 25 mg PO BID #180 tabs 01/30/22 [Rx Last Taken Unknown] amoxicillin 875 mg-potassium clavulanate 125 mg tablet 1 tab PO Q12H 04/23/22 [History Last Taken Unknown] docusate sodium 100 mg capsule (Colace) 100 mg PO BID PRN PRN Constipation 04/23/22 [History Last Taken Unknown] doxycycline hyclate 100 mg capsule (Vibramycin) 100 mg PO BID 04/23/22 [History Last Taken Unknown] empagliflozin 10 mg tablet (Jardiance) 10 mg PO DAILY 04/23/22 [History Last Taken Unknown] furosemide 20 mg tablet 20 mg PO BID 04/23/22 [History Last Taken Unknown] megestrol 400 mg/10 mL (40 mg/mL) oral suspension 200 mg PO 4X/DAY 04/23/22 [History Last Taken Unknown] ondansetron 4 mg disintegrating tablet 4 mg PO Q8H PRN PRN Nausea 04/23/22 [History Last Taken Unknown] potassium chloride 10 mEq capsule,extended release 10 meq PO DAILY 04/23/22 [History Last Taken Unknown] sennosides 8.6 mg-docusate sodium 50 mg tablet (Senna with Docusate Sodium) 2 tab PO QHS PRN PRN Constipation 04/23/22 [History Last Taken Unknown] Allergy/AdvReac Type Severity Reaction Status Date / Time No Known Allergies Allergy Verified 01/30/22 15:05 Family History Brother CAD (coronary artery disease) Myocardial infarction Surgical History History of appendectomy History of left heart catheterization (LHC) (~06/02/21) Social History Smoking Status: Never smoker alcohol intake: never details: occasional substance use type: does not use caffeine: Yes Type: coffee Number of servings: 2 ROS ROS ED ROS Narrative Past medical history: Reviewed, includes chest pain, abnormal stress test, aortic valve stenosis, hyperlipidemia, hypertension Medications: Reviewed, I used the list from his discharge in [place]. Social history: Noncontributory Review of systems: All systems negative except as indicated General: No fever. Generalized weakness as in HPI Eyes: No visual changes ENT: No upper airway congestion, normal voice Neck: No neck pain Cardiovascular: No chest pain Respiratory: Dyspnea as in HPI Gastrointestinal: No abdominal pain, nausea vomiting or diarrhea Genitourinary: No dysuria Musculoskeletal: Generalized edema Skin: No rash Neurological: No memory loss, confusion or any focal weakness Psych: No recent behavioral changes Hematologic: No easy bleeding or easy bruising EXAM Physical Exam Narrative Exam Narrative: Physical exam General: Patient appears ill. However he does not appear in any distress sitting on the cot. Head: Normocephalic, Atraumatic Eyes: Conjunctiva not pale ENT: Moist mucous membranes Neck: Supple, Nontender, No lymphadenopathy Cardiovascular: Regular rate, Regular rhythm. I cannot appreciate an S3 or S4. No obvious JVD however it is very difficult because of his body habitus. Respiratory: No distress, CTA bilaterally Abdomen: Soft, no obvious fluid wave nontender. Back: Nontender, Normal Inspection. Negative for: CVA tenderness Extremities: Bilateral lower extremity edema which is pitting edema without any erythema or calor. Skin: Normal color, No rash Neurological: Alert, no focal deficit Const Vital Signs: 04/23/22 20:05 04/23/22 20:08 Temperature 98.2 F 98.2 F Temperature Source Temporal Temporal Pulse Rate 124 H 124 H Respiratory Rate 20 H 20 H Blood Pressure 105/60 105/60 Blood Pressure Mean 75 75 Pulse Ox 92 92 Oxygen Delivery Method Room Air Room Air [facility] Lab Data Labs: Laboratory Results - last 24 hr 04/23/22 04/23/22 04/23/22 21:59 21:59 21:59 PT 16.1 H INR 1.3 Sodium 130 L Potassium 4.6 Chloride 91 L Carbon Dioxide 30.0 Anion Gap 9 BUN 85 H Creatinine 2.34 H Estim Creat Clear Calc 24.32 Est GFR (MDRD) Af Amer 35 L Est GFR (MDRD) Non-Af 29 L BUN/Creatinine Ratio 36.3 H Glucose 146 H Calcium 9.8 Total Bilirubin 0.90 AST 93 H ALT 25 Alkaline Phosphatase 107 B-Natriuretic Peptide 45.8 Total Protein 6.6 Albumin 1.5 L Globulin 5.1 H Albumin/Globulin Ratio 0.3 L Radiography Diagnostic Testing: Clinical Impression(s) from Imaging Studies Chest X-Ray 04/23/22 20:58 IMPRESSION: Right lower lobe pneumonia. Electronically Signed: Ron Bernal MD at 21:20 EST , X-ray read by me shows right lower lobe pneumonia EKG Initial EKG: Comments: Sinus tachycardia at 110. Normal CA and elevated QTC at 506. Nonspecific ST changes throughout. Otherwise normal EKG Interpreted by emergency Dr. Treatment and Re-Evaluation Narrative: Patient is found to have pneumonia, he has renal insufficiency, he has sarcoma he has weakness is unable to get out of bed he will need admission and further work-up. I talked to the hospitalist for admission. Discharge Plan Triage Chief Complaint: Shortness of Breath ED Provider: Evans Maria Dx/Rx/DC Orders Clinical Impression: Sarcoma, LAVONNE (acute kidney injury), Pneumonia Prescriptions: No Action amlodipine 2.5 mg tablet 2.5 mg PO DAILY Qty: 90 3RF atorvastatin 40 mg tablet 40 mg PO DAILY Qty: 90 3RF clopidogrel 75 mg tablet 75 mg PO DAILY Qty: 90 3RF metoprolol tartrate 25 mg tablet 25 mg PO BID Qty: 180 3RF aspirin [Adult Low Dose Aspirin] 81 mg tablet,delayed release (DR/EC) 81 mg PO DAILY Qty: 90 3RF megestrol [Megace] 400 mg/10 mL (40 mg/mL) Suspension 200 mg PO 4X/DAY potassium chloride 10 mEq Capsule, Extended Release 10 meq PO DAILY sennosides-docusate sodium [Senna with Docusate Sodium] 8.6-50 mg Tablet 2 tab PO QHS PRN PRN (Reason: Constipation) docusate sodium [Colace] 100 mg Capsule 100 mg PO BID PRN PRN (Reason: Constipation) furosemide 20 mg Tablet 20 mg PO BID ondansetron [Zofran ODT] 4 mg Tablet,Disintegrating 4 mg PO Q8H PRN PRN (Reason: Nausea) Jardiance 10 mg Tablet 10 mg PO DAILY doxycycline hyclate [Vibramycin] 100 mg Capsule 100 mg PO BID Label Comments: for 7 days started 04/20/22 amoxicillin-pot clavulanate [Augmentin] 875-125 mg Tablet 1 tab PO Q12H Rx Instructions: x7 days started 04/20/22 pantoprazole 40 mg tablet,delayed release (DR/EC) 40 mg PO DAILY levothyroxine 100 mcg tablet 100 mcg PO DAILY fluticasone propionate [Allergy Relief (fluticasone)] 50 mcg/actuation spray,suspension 2 spray intranasal DAILY PRN (Reason: allergies) Rx Instructions: administer into each nostril Primary Care Provider: Michael Kellogg Referrals: Michael Kellogg MD [Primary Care Provider] - Disposition Disposition: Acute Care Hospital [facility]
--- NOTE | 2022-04-23 20:58 | RAD_ITS ---
EXAM: XR CHEST, 1 VIEW CLINICAL INDICATION: sob TECHNIQUE: Frontal view of the chest. This report was created using [employer] report generation technology. COMPARISON: 01/19/2021 FINDINGS: LUNGS AND PLEURAL SPACES: There is right lower lobe airspace disease compatible with pneumonia. No pneumothorax. No effusion. HEART: Unremarkable. Cardiac silhouette not enlarged. MEDIASTINUM: Central airways and mediastinal contour are unremarkable. BONES/JOINTS: Unremarkable. SOFT TISSUES: Unremarkable. RAD/Chest 1 View (Portable) IMPRESSION: Right lower lobe pneumonia. Electronically Signed: Ron Bernal MD at 21:20 EST ,
[2022-04-23 21:03] VITALS: RESP 20
[2022-04-23 22:03] VITALS: PULSE 105; RESP 24
[2022-04-23 22:08] LABS: Absolute Lymphocyte Count 0.28 X10^3/uL (0.83-4.51); Absolute Neutrophil Count 17.2 X10^3/uL (2.0-7.7); Basophil# 0.08 X10^3/uL; Basophil% 0.4 % (0-1); Eosinophil# 0.08 X10^3/uL; Eosinophils% 0.4 % (0-5); Hematocrit 29.6 % (40-54); Hemoglobin 9.8 g/dL (13.0-16.5); Lymphocyte # 0.28 X10^3/ul (0.83-4.51); Lymphocyte % 1.4 % (19-41); Mean Corp Hgb Conc 33.1 g/dL (32-36); Mean Corpuscular Hgb 26.7 pg (27.0-32.0); Mean Corpuscular Volume 80.7 fL (80-94); Mean Platelet Vol. 9.8 fl (6.2-12.0); Monocyte# 1.47 X10^3/uL; Monocyte% 7.6 % (0-10); NRBC Flagged by Analyzer 0 % (0-5); Neutrophil % 88.6 % (47-70); POSITIVE DIFFERENTIAL YES; Platelet Count 525 K/mm3 (150-450); RBC Distribution Width SD 40.4 fl (35.1-43.9); Red Blood Count 3.67 M/mm3 (4.6-6.2); White Blood Count 19.4 K/mm3 (4.4-11.0)
[2022-04-23 22:27] LABS: International Normalized Ratio 1.3; Prothrombin Time (Protime)PT. 16.1 SECONDS (11.7-14.9)
[2022-04-23 22:34] LABS: ALB/GLOB Ratio 0.3 RATIO (0.9-2.4); AST(SGOT) 93 U/L (15-37); Alanine Aminotransfer ALT/SGPT 25 U/L (16-61); Albumin, Serum 1.5 g/dL (3.2-5.0); Alkaline Phosphatase 107 U/L (45-117); Anion Gap 9 (5-15); BUN 85 mg/dL (7-18); BUN/Creat Ratio 36.3 RATIO (10-20); Calcium,Total 9.8 mg/dL (8.5-10.1); Chloride 91 mmol/L (98-107); Creatinine, Serum 2.34 mg/dL (0.70-1.30); EST Glomerular Filtration Rate 29 mL/min (>60); Est Glom Filt Rate - Afr Amer 35 mL/min (>60); Estimated Creatinine Clearance 24.32 ml/min; Globulin 5.1 g/dL (2.2-4.2); Glucose 146 mg/dL (74-106); Potassium 4.6 mmol/L (3.5-5.1); Protein, Total 6.6 g/dL (6.4-8.2); Sodium Level 130 mmol/L (136-145)
[2022-04-23 22:39] LABS: BNP,B-Type NATRIURETIC PEPTIDE 45.8 pg/mL (0-100)
[2022-04-23 23:03] VITALS: PULSE 102; RESP 22
[2022-04-23 23:20] LABS: Differential Indicated SCAN CRITERIA MET
[2022-04-23 23:21] LABS: Anisocytosis RARE; Platelet Estimate MOD INC (ADEQ); Red Cell Morphology N CHROM NORMAL (NORM C&C)
[2022-04-23 23:22] LABS: Microcytosis RARE
[2022-04-23 23:25] VITALS: O2SAT 87
--- NOTE | 2022-04-23 23:51 | HP.PCM_ITS ---
[facility] - General General Date of Admission: 04/23/22 Date of Service: 04/23/22 Chief Complaint: Shortness of breath HPI Narrative ERICK CONTRERAS, is a 76 M who presents with shortness of breath. Patient was seen and treated in a [facility] hospital for the past 2 weeks where he was diagnosed with sarcoma and pathology and staging reports are pending. He has per my review of the medical record obtained so far he has thickening of the colon at the hepatic flexure with cirrhosis of the liver, numerous paraaortic lymph nodes consistent in size with metastatic disease along with a right lower lobe lesion approximately 1.6 cm consistent with metastatic disease as well. He was seen as an outpatient by his primary care physician Dr. Michael Kellogg at the [facility] and was hypoxic and tachycardic therefore, he was sent to the emergency room for admission. The patient's primary language is Filipino however, he does understand Thai and his daughter was present to help with interpretation. He complains of 9/10 abdominal pain with bloating. He feels weak and tired and has a poor appetite. Chest x-ray reveals a right lower lobe pneumonia. And oxygen has improved with 2 L nasal cannula to 95% from the mid 80% range. He will be admitted to general medical floor with telemetry and consults obtained for hematology oncology. [facility] Medical History Abnormal stress test Acquired hypothyroidism Atherosclerotic heart disease of [place] coronary artery without angina pectoris Bruit of left carotid artery Essential hypertension GERD (gastroesophageal reflux disease) Hypothyroidism Mixed hyperlipidemia Nonrheumatic aortic (valve) stenosis Sarcomatoid carcinoma of lung Home Medications levothyroxine 100 mcg tablet 100 mcg PO DAILY 05/10/21 [History Last Taken 06/02/21] pantoprazole 40 mg tablet,delayed release 40 mg PO DAILY 05/10/21 [History Last Taken Unknown] amlodipine 2.5 mg tablet 2.5 mg PO DAILY #90 tabs 01/30/22 [Rx Last Taken Unknown] aspirin 81 mg tablet,delayed release (Adult Low Dose Aspirin) 81 mg PO DAILY #90 tabs 01/30/22 [Rx Last Taken Unknown] atorvastatin 40 mg tablet 40 mg PO DAILY #90 tabs 01/30/22 [Rx Last Taken Unknown] clopidogrel 75 mg tablet 75 mg PO DAILY #90 tabs 01/30/22 [Rx Last Taken Unknown] fluticasone propionate 50 mcg/actuation nasal spray,suspension (Allergy Relief (fluticasone)) 2 spray intranasal DAILY PRN allergies 01/30/22 [History Last Taken Unknown] metoprolol tartrate 25 mg tablet 25 mg PO BID #180 tabs 01/30/22 [Rx Last Taken Unknown] amoxicillin 875 mg-potassium clavulanate 125 mg tablet 1 tab PO Q12H 04/23/22 [History Last Taken Unknown] docusate sodium 100 mg capsule (Colace) 100 mg PO BID PRN PRN Constipation 04/23/22 [History Last Taken Unknown] doxycycline hyclate 100 mg capsule (Vibramycin) 100 mg PO BID 04/23/22 [History Last Taken Unknown] empagliflozin 10 mg tablet (Jardiance) 10 mg PO DAILY 04/23/22 [History Last Taken Unknown] furosemide 20 mg tablet 20 mg PO BID 04/23/22 [History Last Taken Unknown] megestrol 400 mg/10 mL (40 mg/mL) oral suspension 200 mg PO 4X/DAY 04/23/22 [Hi story Last Taken Unknown] ondansetron 4 mg disintegrating tablet 4 mg PO Q8H PRN PRN Nausea 04/23/22 [History Last Taken Unknown] potassium chloride 10 mEq capsule,extended release 10 meq PO DAILY 04/23/22 [History Last Taken Unknown] sennosides 8.6 mg-docusate sodium 50 mg tablet (Senna with Docusate Sodium) 2 tab PO QHS PRN PRN Constipation 04/23/22 [History Last Taken Unknown] Allergy/AdvReac Type Severity Reaction Status Date / Time No Known Allergies Allergy Verified 01/30/22 15:05 Family History Brother CAD (coronary artery disease) Myocardial infarction Surgical History History of appendectomy History of left heart catheterization (LHC) (~06/02/21) Social History Smoking Status: Never smoker alcohol intake: never details: occasional substance use type: does not use caffeine: Yes Type: coffee Number of servings: 2 ROS Constitutional Constitutional: Reports fatigue, fever(s) and weakness Eyes Eyes: Denies change in vision ENT HEENT: Denies abnormal hearing Cardiovascular Cardiovascular: Reports edema Respiratory/Chest Respiratory/Chest: Reports cough and shortness of breath at rest Gastrointestinal Gastrointestinal: Reports abdominal pain Genitourinary Genitourinary: Denies dysuria Musculoskeletal Musculoskeletal: Reports back pain Integumentary Integumentary: Denies dry skin Neurologic Neurologic: Denies abnormal speech Psychiatric Psychiatric: Denies anxiety Vital Signs Vital Signs Vital Signs: 04/23/22 20:05 04/23/22 20:08 04/23/22 21:03 Temperature 98.2 F 98.2 F Temperature Source Temporal Temporal Pulse Rate 124 H 124 H Respiratory Rate 20 H 20 H 20 H Respiratory Effort Respiratory Depth Respiratory Pattern Blood Pressure 105/60 105/60 Blood Pressure Mean 75 75 Pulse Ox 92 92 Oxygen Delivery Method Room Air Room Air 04/23/22 22:03 04/23/22 23:03 04/23/22 23:25 Temperature Temperature Source Pulse Rate 105 H 102 H Respiratory Rate 24 H 22 H Respiratory Effort Short of Breath Respiratory Depth Normal Respiratory Pattern Normal Blood Pressure Blood Pressure Mean Pulse Ox Oxygen Delivery Method Room Air Weight Weight: 227 lb Body Mass Index (BMI) 35.5 Physical Exam Const alert and oriented x3 General Appearance: cooperative HEENT normocephalic and head/scalp atraumatic Eyes PERRL Neck no lymphadenopathy Resp Auscultation: rhonchi right lower and diminished lung sounds Cardio regular rhythm, S1 normal heart sound and S2 normal heart sound Rate: tachycardic GI Auscultation: hypoactive bowel sounds Palpation: tender other (Generalized) Extremity normal capillary refill Skin General Skin Exam: no breakdown Neuro no focal motor deficits and no sensory deficits noted Psych thought process normal, cooperative and affect normal Results Lab / Micro Data Result Diagrams: 04/23/22 21:59 04/23/22 21:59 Labs: Laboratory Results - last 24 hr 04/23/22 21:59: WBC 19.4 H, RBC 3.67 L, Hgb 9.8 L, Hct 29.6 L, MCV 80.7, MCH 26.7 L, MCHC 33.1, RDW Std Deviation 40.4, RDW Coeff of Whit 14.0, Plt Count 525 H, MPV 9.8, Immature Gran % (Auto) 1.600 H, Neut % (Auto) 88.6 H, Lymph % (Auto) 1.4 L, [place] % (Auto) 7.6, Eos % (Auto) 0.4, Baso % (Auto) 0.4, Absolute Neuts (auto) 17.2 H, Absolute Lymphs (auto) 0.28 L, Nucleated RBC % 0, Differential Comment SEE COMMENT, Platelet Estimate MOD INC, RBC Morphology N CHROM, Anisocytosis RARE, Microcytosis RARE 04/23/22 21:59: PT 16.1 H, INR 1.3 04/23/22 21:59: Sodium 130 L, Potassium 4.6, Chloride 91 L, Carbon Dioxide 30.0, Anion Gap 9, BUN 85 H, Creatinine 2.34 H, Estim Creat Clear Calc 24.32, Est GFR (MDRD) Af Amer 35 L, Est GFR (MDRD) Non-Af 29 L, BUN/Creatinine Ratio 36.3 H, Glucose 146 H, Calcium 9.8, Total Bilirubin 0.90, AST 93 H, ALT 25, Alkaline Phosphatase 107, Total Protein 6.6, Albumin 1.5 L, Globulin 5.1 H, Albumin/Globulin Ratio 0.3 L 04/23/22 21:59: B-Natriuretic Peptide 45.8 Micro: Microbiology 04/23/22 21:41 Nasal Secretion SARS-CoV-2 & FLU Antigen (Rapid) - Final Radiology Impression Chest X-Ray 04/23/22 20:58 IMPRESSION: Right lower lobe pneumonia. Electronically Signed: Ron Bernal MD at 21:20 EST , Assessment & Plan Assessment/Plan (1) Sarcoma: (2) LAVONNE (acute kidney injury): (3) Pneumonia: (4) Essential hypertension: (5) Acquired hypothyroidism: (6) GERD (gastroesophageal reflux disease): PLAN: Plan 1 hospital-acquired pneumonia?admit patient to general medical floor with telemetry, continue vancomycin and Zosyn initiated in the emergency room, supplemental oxygen per routine protocol, repeat CBC and BMP in the morning, IV normal saline at 100 cc/h 2. Metastatic disease?patient has been told he has sarcoma and that pathology reports were pending from the [facility]. Will obtain consult with Dr. Evans Cortez to help us determine the next steps and course of action for treating this patient, i.e. will patient need a port placed and depending on pathology results what will be the next course of treatment be after staging is determined. We will hold any blood thinners at this time should further biopsies be required. 3. Essential hypertension we will continue routine home medications 4. Hypothyroidism?continue Synthroid 5. Acute kidney injury?IV hydration and repeat BMP in the morning 6. DVT prophylaxis?SCDs Charges/Coding Visit Charges Inpatient E&M: 38246 Init Hosp L3
[2022-04-24] VITALS (21 sets, daily range): BP systolic 68–118; BP diastolic 39–67; PULSE 99–135; RESP 18–114; TEMP 36.3–37.7; O2SAT 92–98; BMI 36.4
[2022-04-24] MEDS: Morphine 4 MG/ML Syringe IV ×2 (01:40→22:50)
[2022-04-24] MEDS: 0.9% Saline Lock 10 ML Syringe IV (01:40)
[2022-04-24] MEDS: Ondansetron 4 MG/2 ML Vial IV (01:41)
[2022-04-24] MEDS: 0.9% Normal Saline 1,000 ML 100 ML IV ×2 (01:41→09:20)
--- NOTE | 2022-04-24 03:14 | PCM.RX.CS ---
Consult Pharmacy has been consulted to manage selected antiobiotic: Vancomycin Type of Consult: New start Labs: Sodium 130 mmol/L (136-145) L 04/23/22 21:59 Potassium 4.6 mmol/L (3.5-5.1) 04/23/22 21:59 Chloride 91 mmol/L (98-107) L 04/23/22 21:59 Carbon Dioxide 30.0 mmol/L (21.0-32.0) 04/23/22 21:59 Anion Gap 9 (5-15) 04/23/22 21:59 BUN 85 mg/dL (7-18) H 04/23/22 21:59 Creatinine 2.34 mg/dL (0.70-1.30) H 04/23/22 21:59 Est GFR (MDRD) Af Amer 35 mL/min (>60) L 04/23/22 21:59 Est GFR (MDRD) Non-Af 29 mL/min (>60) L 04/23/22 21:59 BUN/Creatinine Ratio 36.3 RATIO (10-20) H 04/23/22 21:59 Glucose 146 mg/dL (74-106) H 04/23/22 21:59 Microbiology: Microbiology 04/23/22 21:41 Nasal Secretion SARS-CoV-2 & FLU Antigen (Rapid) - Final Goal Trough: 10-15 mcg/mL Pharmacy Plan for Drug Dosing: Pharmacy Service will continue to monitor and adjust dosing as required. Medications Vancomycin HCl 1,250 mg/ (Sodium Chloride) 275 mls @ 167 mls/hr IV Q24H DEMARCUS Discontinued Medications Vancomycin HCl 1,500 mg/ (Sodium Chloride) 530 mls @ 250 mls/hr IV X1 ONE Stop: 04/23/22 23:36 Last Admin: 04/24/22 01:26 Dose: Infused Follow-Up Labs: Trough Vancomycin Labs to be done on [date and time ordered]: 04/25 @ 1284
[2022-04-24 06:31] LABS: Absolute Lymphocyte Count 0.13 X10^3/uL (0.83-4.51); Absolute Neutrophil Count 18.2 X10^3/uL (2.0-7.7); Basophil# 0.04 X10^3/uL; Basophil% 0.2 % (0-1); Hematocrit 27.5 % (40-54); Lymphocyte # 0.13 X10^3/ul (0.83-4.51); Lymphocyte % 0.7 % (19-41); Mean Corp Hgb Conc 32.7 g/dL (32-36); Mean Corpuscular Volume 82.6 fL (80-94); Mean Platelet Vol. 10.1 fl (6.2-12.0); Monocyte# 0.47 X10^3/uL; Monocyte% 2.4 % (0-10); NRBC Flagged by Analyzer 0.1 % (0-5); Neutrophil # 18.15 X10^3/uL (2.7-7.7); Neutrophil % 93.8 % (47-70); POSITIVE DIFFERENTIAL YES; Platelet Count 488 K/mm3 (150-450); RBC Distribution Width CV 14.1 % (11.6-14.6); RBC Distribution Width SD 41.9 fl (35.1-43.9); Red Blood Count 3.33 M/mm3 (4.6-6.2); White Blood Count 19.4 K/mm3 (4.4-11.0)
[2022-04-24 06:41] LABS: Differential Indicated SCAN CRITERIA MET
[2022-04-24] MEDS: Acetaminophen 500 MG Tablet 1000 MG PO (06:45)
[2022-04-24 07:05] LABS: Differential Comment SCANNED
[2022-04-24 07:10] LABS: ALB/GLOB Ratio 0.3 RATIO (0.9-2.4); AST(SGOT) 73 U/L (15-37); Alanine Aminotransfer ALT/SGPT 24 U/L (16-61); Albumin, Serum 1.3 g/dL (3.2-5.0); Alkaline Phosphatase 94 U/L (45-117); Anion Gap 11 (5-15); BUN 88 mg/dL (7-18); BUN/Creat Ratio 33.5 RATIO (10-20); Calcium,Total 9.4 mg/dL (8.5-10.1); Chloride 92 mmol/L (98-107); Creatinine, Serum 2.63 mg/dL (0.70-1.30); EST Glomerular Filtration Rate 25 mL/min (>60); Est Glom Filt Rate - Afr Amer 30 mL/min (>60); Estimated Creatinine Clearance 21.64 ml/min; Globulin 4.3 g/dL (2.2-4.2); Glucose 132 mg/dL (74-106); Protein, Total 5.6 g/dL (6.4-8.2); Sodium Level 132 mmol/L (136-145)
--- NOTE | 2022-04-24 07:51 | CON.PCM.UR_ITS ---
Assessment & Plan Assessment/Plan (1) Urgency incontinence: PLAN: Baumann catheter was placed was difficult catheter placement mostly because of his extreme the swollen penis and foreskin but he does not need to go home with a catheter once he is stabilized we can remove the catheter for voiding trial call me with questions. HPI Consult Data Date of Consult: 04/24/22 HPI Narrative Reason for Consultation: Baumann catheter for management of sepsis HPI Narrative: ERICK CONTRERAS, is a 76 M who presents To the hospital with sepsis he is undergoing fluid resuscitation urine output monitoring has been very difficult because his foreskin and his penis is extremely swollen so the nursing staff have not been able to place a catheter at the bedside was able to reduce the swelling a little bit and then bimanual palpation and feel is able to place a Baumann catheter into the bladder with return of a little bit of urine he was not in retention of urine he just has a low urine output. PVR residual before the Baumann placement was only about 50 cc.He also has a rising creatinine [facility] Medical History Abnormal stress test Acquired hypothyroidism Atherosclerotic heart disease of [place] coronary artery without angina pectoris Bruit of left carotid artery Essential hypertension GERD (gastroesophageal reflux disease) Hypothyroidism Mixed hyperlipidemia Nonrheumatic aortic (valve) stenosis Sarcomatoid carcinoma of lung Home Medications levothyroxine 100 mcg tablet 100 mcg PO DAILY 05/10/21 [History Last Taken 06/02/21] pantoprazole 40 mg tablet,delayed release 40 mg PO DAILY 05/10/21 [History Last Taken Unknown] amlodipine 2.5 mg tablet 2.5 mg PO DAILY #90 tabs 01/30/22 [Rx Last Taken Unknown] aspirin 81 mg tablet,delayed release (Adult Low Dose Aspirin) 81 mg PO DAILY #90 tabs 01/30/22 [Rx Last Taken Unknown] atorvastatin 40 mg tablet 40 mg PO DAILY #90 tabs 01/30/22 [Rx Last Taken Unknown] clopidogrel 75 mg tablet 75 mg PO DAILY #90 tabs 01/30/22 [Rx Last Taken Unknown] fluticasone propionate 50 mcg/actuation nasal spray,suspension (Allergy Relief (fluticasone)) 2 spray intranasal DAILY PRN allergies 01/30/22 [History Last Taken Unknown] metoprolol tartrate 25 mg tablet 25 mg PO BID #180 tabs 01/30/22 [Rx Last Taken Unknown] amoxicillin 875 mg-potassium clavulanate 125 mg tablet 1 tab PO Q12H 04/23/22 [History Last Taken Unknown] docusate sodium 100 mg capsule (Colace) 100 mg PO BID PRN PRN Constipation 04/23/22 [History Last Taken Unknown] doxycycline hyclate 100 mg capsule (Vibramycin) 100 mg PO BID 04/23/22 [History Last Taken Unknown] empagliflozin 10 mg tablet (Jardiance) 10 mg PO DAILY 04/23/22 [History Last Taken Unknown] furosemide 20 mg tablet 20 mg PO BID 04/23/22 [History Last Taken Unknown] megestrol 400 mg/10 mL (40 mg/mL) oral suspension 200 mg PO 4X/DAY 04/23/22 [History Last Taken Unknown] ondansetron 4 mg disintegrating tablet 4 mg PO Q8H PRN PRN Nausea 04/23/22 [History Last Taken Unknown] potassium chloride 10 mEq capsule,extended release 10 meq PO DAILY 04/23/22 [History Last Taken Unknown] sennosides 8.6 mg-docusate sodium 50 mg tablet (Senna with Docusate Sodium) 2 tab PO QHS PRN PRN Constipation 04/23/22 [History Last Taken Unknown] Allergy/AdvReac Type Severity Reaction Status Date / Time No Known Allergies Allergy Verified 01/30/22 15:05 Family History Brother CAD (coronary artery disease) Myocardial infarction Surgical History History of appendectomy History of left heart catheterization (LHC) (~06/02/21) Social History Smoking Status: Never smoker alcohol intake: never details: occasional substance use type: does not use caffeine: Yes Type: coffee Number of servings: 2 ROS Review of Systems ROS Unobtainable: due to mental condition Physical Exam Narrative Penis and testicles are extremely swollen and edematous Baumann catheter was placed Const Orientation / Consciousness: confused Lab / Micro Data Result Diagrams: 04/24/22 05:18 04/24/22 05:18 Labs: Laboratory Results - last 24 hr 04/23/22 21:59: WBC 19.4 H, RBC 3.67 L, Hgb 9.8 L, Hct 29.6 L, MCV 80.7, MCH 26.7 L, MCHC 33.1, RDW Std Deviation 40.4, RDW Coeff of Whit 14.0, Plt Count 525 H, MPV 9.8, Immature Gran % (Auto) 1.600 H, Neut % (Auto) 88.6 H, Lymph % (Auto) 1.4 L, [place] % (Auto) 7.6, Eos % (Auto) 0.4, Baso % (Auto) 0.4, Absolute Neuts (auto) 17.2 H, Absolute Lymphs (auto) 0.28 L, Nucleated RBC % 0, Differential Comment SEE COMMENT, Platelet Estimate MOD INC, RBC Morphology N CHROM, Anisocytosis RARE, Microcytosis RARE 04/23/22 21:59: PT 16.1 H, INR 1.3 04/23/22 21:59: Sodium 130 L, Potassium 4.6, Chloride 91 L, Carbon Dioxide 30.0, Anion Gap 9, BUN 85 H, Creatinine 2.34 H, Estim Creat Clear Calc 24.32, Est GFR (MDRD) Af Amer 35 L, Est GFR (MDRD) Non-Af 29 L, BUN/Creatinine Ratio 36.3 H, Glucose 146 H, Calcium 9.8, Total Bilirubin 0.90, AST 93 H, ALT 25, Alkaline Phosphatase 107, Total Protein 6.6, Albumin 1.5 L, Globulin 5.1 H, Albumin/Globulin Ratio 0.3 L 04/23/22 21:59: B-Natriuretic Peptide 45.8 04/24/22 05:18: WBC 19.4 H, RBC 3.33 L, Hgb 9.0 L, Hct 27.5 L, MCV 82.6, MCH 27.0, MCHC 32.7, RDW Std Deviation 41.9, RDW Coeff of Whit 14.1, Plt Count 488 H, MPV 10.1, Immature Gran % (Auto) 1.900 H, Neut % (Auto) 93.8 H, Lymph % (Auto) 0.7 L, [place] % (Auto) 2.4, Eos % (Auto) 1.0, Baso % (Auto) 0.2, Absolute Neuts (auto) 18.2 H, Absolute Lymphs (auto) 0.13 L, Nucleated RBC % 0.1, Differential Comment SCANNED 04/24/22 05:18: Sodium 132 L, Potassium 4.0, Chloride 92 L, Carbon Dioxide 29.0, Anion Gap 11, BUN 88 H, Creatinine 2.63 H, Estim Creat Clear Calc 21.64, Est GFR (MDRD) Af Amer 30 L, Est GFR (MDRD) Non-Af 25 L, BUN/Creatinine Ratio 33.5 H, Glucose 132 H, Calcium 9.4, Total Bilirubin 1.00, AST 73 H, ALT 24, Alkaline Phosphatase 94, Total Protein 5.6 L, Albumin 1.3 L, Globulin 4.3 H, Albumin/Globulin Ratio 0.3 L Micro: Microbiology 04/23/22 21:41 Nasal Secretion SARS-CoV-2 & FLU Antigen (Rapid) - Final Radiology Impression Chest X-Ray 04/23/22 20:58 IMPRESSION: Right lower lobe pneumonia. Electronically Signed: Ron Bernal MD at 21:20 EST ,
--- NOTE | 2022-04-24 08:03 | NURSING ---
DR. Treviño placed griffin at bedside
[2022-04-24] MEDS: 0.9% Normal Saline 1,000 ML 999 ML IV ×3 (08:13→14:15)
[2022-04-24] MEDS: Empagliflozin 10 MG Tablet PO (10:05)
[2022-04-24] MEDS: Atorvastatin Calcium 40 MG Tablet PO ×2 (10:05→22:47)
[2022-04-24] MEDS: Levothyroxine 100 MCG Tablet PO (10:05)
[2022-04-24] MEDS: Potassium Chloride Oral Tablet 10 MEQ PO (10:05)
[2022-04-24] MEDS: Pantoprazole Sodium 40 MG Tablet PO (10:05)
--- NOTE | 2022-04-24 10:15 | CASEMGMT ---
Addendum entered by Erica Colby 04/24/22 14:36: Noted hospice recommended in physician note. RN CM in to pt room, pt and son in law speaking with hospitalist. RN CM back into room, pt and son in law state that they are going to pursue hospice. Will hold off on HHC. RN CM to follow, updated SW. Original Note: RN CM Assessment: Face to Face with pt for initial transition planning/care coordination assessment. RN CM introduced self and role at [facility], pt voices understanding and consents to assessment. Pt is A/O x4 and answers all questions appropriately at this time. Pt son in law Mike present in room and pt defers some questions to him. Care providers, pharmacy, and demographics verified/updated. Admitting Dx: Hospital acquired pneumonia, metastatic disease PCP:Valdez Specialists:anthony Leblanc Preferred Pharmacy: [facility] Retail Insurance: SNADEC Prescription Benefit: yes LNOK: Manuela Silverio dtr Living Arrangements: Pt lives alone in a single story house with 2 steps to enter with a rail. Pt reports he was I in ADL's up until the last week or so but now needs assistance. Pt denies concerns at home. Transportation: Pt drove until 3 weeks ago. Pt dtr and son in law are transporting pt to medical appts currently. DME/HHC/SNF: Pt has a 4 prong cane, rollator and medical alert through [employer]. Pt denies hx of HHC or SNF stays. Pt states no concerns with going home at time of dc. Pt son in law and dtr have been taking turns staying with patient and plan to do so post hospitalization. Discussed options of therapy as pt states he cannot ambulate as he was. Pt and son in law decide HHC would be the preferred option for them. Discussed SN and therapy. Pt and son in law agreeable. Patient/son in law was provided a list of HHC providers including quality and resource use data and consistent with the patient?s preferred geographic region, medical needs, and insurance network were provided from the [employer]. Pt defers to son in law for choice. PAT CM to check back. Discussed expectations of HHC and that this is a short term service. Pt and son in law verbalize understanding. Pt states no further concerns/needs. CM to follow. Advised pt to ask CM if any further question/concerns/needs arise, voices understanding. Pt Goal: Home with HHC and family assistance Plan: Home with HHC and family assistance
[2022-04-24] MEDS: Megestrol Acetate 400 MG/10 ML UDC 200 MG PO ×4 (10:27→22:44)
[2022-04-24] MEDS: Ensure Plus High Protein 120 ML LIQUID PO ×2 (11:23→17:10)
--- NOTE | 2022-04-24 11:52 | PCM.PN.HOSP ---
Subjective Subjective He was tachycardic this morning and complaining about some scrotal pain. He been having significant scrotal swelling for the last several weeks, urology was consulted and was able to place a Baumann he had very little output. Objective Data Objective Data Vital Signs: Vital Signs Temp Pulse Resp BP Pulse Ox O2 Del Method O2 Flow Rate 97.9 F 104 H 24 H 100/60 95 Nasal Cannula 4 04/24/22 11:26 04/24/22 11:26 04/24/22 11:26 04/24/22 11:26 04/24/22 11:26 04/24/22 11:47 04/24/22 11:47 Oxygen Flow Rate (L/min) 4 Oxygen Delivery Method Nasal Cannula Weight: 232 lb 12.93 oz Body Mass Index (BMI) 36.4 Intake & Output: Intake and Output for Last 24 Hours 04/23/22 04/24/22 04/25/22 03:59 03:59 03:59 Intake Total 630 / 630 2711.67 / 2711.67 Balance 630 / 630 2711.67 / 2711.67 Lab / Micro Data Result Diagrams: 04/24/22 05:18 04/24/22 05:18 Labs: Laboratory Results - last 24 hr 04/23/22 21:59: WBC 19.4 H, RBC 3.67 L, Hgb 9.8 L, Hct 29.6 L, MCV 80.7, MCH 26.7 L, MCHC 33.1, RDW Std Deviation 40.4, RDW Coeff of Whit 14.0, Plt Count 525 H, MPV 9.8, Immature Gran % (Auto) 1.600 H, Neut % (Auto) 88.6 H, Lymph % (Auto) 1.4 L, [place] % (Auto) 7.6, Eos % (Auto) 0.4, Baso % (Auto) 0.4, Absolute Neuts (auto) 17.2 H, Absolute Lymphs (auto) 0.28 L, Nucleated RBC % 0, Differential Comment SEE COMMENT, Platelet Estimate MOD INC, RBC Morphology N CHROM, Anisocytosis RARE, Microcytosis RARE 04/23/22 21:59: PT 16.1 H, INR 1.3 04/23/22 21:59: Sodium 130 L, Potassium 4.6, Chloride 91 L, Carbon Dioxide 30.0, Anion Gap 9, BUN 85 H, Creatinine 2.34 H, Estim Creat Clear Calc 24.32, Est GFR (MDRD) Af Amer 35 L, Est GFR (MDRD) Non-Af 29 L, BUN/Creatinine Ratio 36.3 H, Glucose 146 H, Calcium 9.8, Total Bilirubin 0.90, AST 93 H, ALT 25, Alkaline Phosphatase 107, Total Protein 6.6, Albumin 1.5 L, Globulin 5.1 H, Albumin/Globulin Ratio 0.3 L 04/23/22 21:59: B-Natriuretic Peptide 45.8 04/24/22 05:18: WBC 19.4 H, RBC 3.33 L, Hgb 9.0 L, Hct 27.5 L, MCV 82.6, MCH 27.0, MCHC 32.7, RDW Std Deviation 41.9, RDW Coeff of Whit 14.1, Plt Count 488 H, MPV 10.1, Immature Gran % (Auto) 1.900 H, Neut % (Auto) 93.8 H, Lymph % (Auto) 0.7 L, [place] % (Auto) 2.4, Eos % (Auto) 1.0, Baso % (Auto) 0.2, Absolute Neuts (auto) 18.2 H, Absolute Lymphs (auto) 0.13 L, Nucleated RBC % 0.1, Differential Comment SCANNED 04/24/22 05:18: Sodium 132 L, Potassium 4.0, Chloride 92 L, Carbon Dioxide 29.0, Anion Gap 11, BUN 88 H, Creatinine 2.63 H, Estim Creat Clear Calc 21.64, Est GFR (MDRD) Af Amer 30 L, Est GFR (MDRD) Non-Af 25 L, BUN/Creatinine Ratio 33.5 H, Glucose 132 H, Calcium 9.4, Total Bilirubin 1.00, AST 73 H, ALT 24, Alkaline Phosphatase 94, Total Protein 5.6 L, Albumin 1.3 L, Globulin 4.3 H, Albumin/Globulin Ratio 0.3 L Micro: Microbiology 04/23/22 21:41 Nasal Secretion SARS-CoV-2 & FLU Antigen (Rapid) - Final Radiography Diagnostic Testing: Radiology Impression Chest X-Ray 04/23/22 20:58 IMPRESSION: Right lower lobe pneumonia. Electronically Signed: Ron Bernal MD at 21:20 EST , Physical Exam Narrative General: Alert, Oriented x3, Cooperative, No apparent distress HEENT: Atraumatic, PERRLA, EOMI, Normocephalic Oral: Moist Mucosa Neck: Supple, No JVD Lungs: Diminished right lower lobe, Normal air movement, No rhonchi, No wheeze, No rales Cardiovascular: Tachycardic, Regular Rhythm, Normal S1, Normal S2, No murmurs Abdomen: Soft, Non Tender, Non-Distended, No Hepato-splenomegaly Extremities: No edema, Capillary Refill Less than 3 Seconds Skin: No rashes, No breakdown : Fairly significant scrotal and penile swelling Baumann in place Musculoskeletal: No Tenderness to Palpation of Joints or Extremities Neurological: Cranial nerves II-XII grossly intact, Motor Exam 5/5 strength throughout, Sensory exam intact to light touch and pain Psych/Mental Status: Flat affect, Appropriate Assessment & Plan Assessment/Plan (1) Sarcoma: (2) LAVONNE (acute kidney injury): (3) Pneumonia: (4) Essential hypertension: (5) Acquired hypothyroidism: (6) GERD (gastroesophageal reflux disease): PLAN: Plan 1. Sepsis secondary to right lower lobe pneumonia/LAVONNE/scrotal swelling ? He was hospitalized in [facility] therefore we will place him on Zosyn and vancomycin ? We will obtain a sputum culture ? She did receive 2 L of fluid because of some transient hypotension and will increase IV fluids 150 cc an hour ? We will monitor urine output ? We will obtain blood cultures ? Renal functions at 2.63 today, will continue with IV fluids and monitor ? The scrotal swelling has been going on for several weeks unsure if this has anything to do with the sarcoma in his lymph nodes however urology was consulted and they were able to place a Baumann 2. Metastatic sarcoma ? Unsure as to the primary location according to the son he had lymph nodes biopsied in his abdomen pathology report is pending ? He will be following up with Dr. Cortez as an outpatient for follow-up 3. HTN/HLD/CAD ? Given his hypotension and the need for fluid resuscitation, will hold his blood pressure medication since ? Can resume his statin ? He does have a 95% stenosis in his distal left circumflex that could not be stented with normal cardiac function 4. Hypothyroidism ? Stable ? Continue Synthroid DVT: SCDs Sepsis Attestation Sepsis Attestation: Agree w/Sepsis Date exam was performed: 04/24/22 Time exam was performed: 09:00 Possible Source of Sepsis: Pulmonary Sepsis Organ Dysfunction Criteria Present: SBP < 90 mmHg or MAP < 65 mmHg, Creatinine > 2.0 mg/dL and UOP < 0.5 mL/kg/hour for 2 consecutive hours Fluid Resuscitation Fluid Resuscitation ordered: Lesser volume fluid bolus ordered Reason for lesser fluid bolus:: Concern for fluid overload Charges/Coding Visit Charges Inpatient E&M: 73227 Subs Hosp L2
--- NOTE | 2022-04-24 11:58 | CHAPLAIN ---
Type of Pastoral Visit _x__ Initial Visit ___ Follow-up Visit ___ On-call Visit ___ General Patient Visit ___ Spiritual Assessment ___ Family Conference ___ Bereavement ___ Rapid Response ___ Code Blue ___ Other (describe below) Pastoral Care Referral From _x__ Patient _x__ Family ___ Nurse ___ Physician ___ Waste Salvager ___ Flooring Sales Manager ___ Other (describe below) Sacrament/Intervention ___ Active listening ___ Anointing ___ Taoist ___ Bereavement ___ Communion ___ Kim exploration ___ ___ Life review _x__ Prayer ___ Reconciliation ___ Sacrament of Sick _x__ Supportive presence ___ Wedding ___ Other (describe below) Pastoral Comments patient and son-in-law are in the room; pt responds to questions but does not engage in conversation; pt states he is thankful for support; pt welcomes a prayer; son-in-law talks of his is an only child so developments will result in their interventions as a couple; this family also has young children; offered ongoing support as desired
--- NOTE | 2022-04-24 12:59 | PCM.CONS.B ---
Consult Date of Consult: 04/24/22 Reason for Consult Undifferentiated sarcoma HPI Narrative ERICK CONTRERAS, is a 76 M who presents with shortness of breath since he came home from [place].? Patient was seen and treated in a [facility] hospital for the past 2 weeks where he was diagnosed with undifferentiated sarcoma and staging reports also suggest metastatic disease.? He had a history of cirrhosis of the liver, numerous paraaortic lymph nodes consistent in size with metastatic disease along with a right lower lobe lesion approximately 1.6 cm consistent with metastatic disease as well.? He was seen as an outpatient by his primary care physician Dr. Michael Kellogg yesterday at the [facility] and he was hypoxic and tachycardic therefore, he was sent to the emergency room for admission.? He complains of 9/10 abdominal pain with bloating.? He feels weak and tired and has a poor appetite since last month.? Chest x-ray reveals a right lower lobe pneumonia.? He will be admitted to general medical floor with telemetry for hospital-acquired pneumonia and acute renal failure. [facility] Medical History? Abnormal stress test Acquired hypothyroidism Atherosclerotic heart disease of [place] coronary artery without angina pectoris Bruit of left carotid artery Essential hypertension GERD (gastroesophageal reflux disease) Hypothyroidism Mixed hyperlipidemia Nonrheumatic aortic (valve) stenosis Sarcomatoid carcinoma of lung Home Medications levothyroxine 100 mcg tablet 100 mcg PO DAILY 05/10/21 [History Last Taken 06/02/21] pantoprazole 40 mg tablet,delayed release 40 mg PO DAILY 05/10/21 [History Last Taken Unknown] amlodipine 2.5 mg tablet 2.5 mg PO DAILY #90 tabs 01/30/22 [Rx Last Taken Unknown] aspirin 81 mg tablet,delayed release (Adult Low Dose Aspirin) 81 mg PO DAILY #90 tabs 01/30/22 [Rx Last Taken Unknown] atorvastatin 40 mg tablet 40 mg PO DAILY #90 tabs 01/30/22 [Rx Last Taken Unknown] clopidogrel 75 mg tablet 75 mg PO DAILY #90 tabs 01/30/22 [Rx Last Taken Unknown] fluticasone propionate 50 mcg/actuation nasal spray,suspension (Allergy Relief (fluticasone)) 2 spray intranasal DAILY PRN allergies 01/30/22 [History Last Taken Unknown] metoprolol tartrate 25 mg tablet 25 mg PO BID #180 tabs 01/30/22 [Rx Last Taken Unknown] amoxicillin 875 mg-potassium clavulanate 125 mg tablet 1 tab PO Q12H 04/23/22 [History Last Taken Unknown] docusate sodium 100 mg capsule (Colace) 100 mg PO BID PRN PRN Constipation 04/23/22 [History Last Taken Unknown] doxycycline hyclate 100 mg capsule (Vibramycin) 100 mg PO BID 04/23/22 [History Last Taken Unknown] empagliflozin 10 mg tablet (Jardiance) 10 mg PO DAILY 04/23/22 [History Last Taken Unknown] furosemide 20 mg tablet 20 mg PO BID 04/23/22 [History Last Taken Unknown] megestrol 400 mg/10 mL (40 mg/mL) oral suspension 200 mg PO 4X/DAY 04/23/22 [History Last Taken Unknown] ondansetron 4 mg disintegrating tablet 4 mg PO Q8H PRN PRN Nausea 04/23/22 [History Last Taken Unknown] potassium chloride 10 mEq capsule,extended release 10 meq PO DAILY 04/23/22 [History Last Taken Unknown] sennosides 8.6 mg-docusate sodium 50 mg tablet (Senna with Docusate Sodium) 2 tab PO QHS PRN PRN Constipation 04/23/22 [History Last Taken Unknown] Allergy/AdvReac Type Severity Reaction Status Date / Time No Known Allergies Allergy ? ? Verified 01/30/22 15:05 Family History? Brother?? CAD (coronary artery disease) Myocardial infarction Surgical History? History of appendectomy History of left heart catheterization (LHC) (~06/02/21) Social History? Smoking Status:? Never smoker alcohol intake:? never details:? occasional substance use type:? does not use caffeine:? Yes Type: coffee Number of servings: 2 ROS Constitutional Constitutional: Reports fatigue, fever(s) and weakness Eyes Eyes: Denies change in vision ENT HEENT: Denies abnormal hearing Cardiovascular Cardiovascular: Reports edema Respiratory/Chest Respiratory/Chest: Reports cough and shortness of breath at rest Gastrointestinal Gastrointestinal: Reports abdominal pain Genitourinary Genitourinary: Denies dysuria Musculoskeletal Musculoskeletal: Reports back pain Integumentary Integumentary: Denies dry skin Neurologic Neurologic: Denies abnormal speech Psychiatric Psychiatric: Denies anxiety Vital Signs Vital Signs Vital Signs: ? 04/23/22 20:05 04/23/22 20:08 04/23/22 21:03 Temperature 98.2 F 98.2 F ? Temperature Source Temporal Temporal ? Pulse Rate 124 H 124 H ? Respiratory Rate 20 H 20 H 20 H Respiratory Effort ? ? ? Respiratory Depth ? ? ? Respiratory Pattern ? ? ? Blood Pressure 105/60 105/60 ? Blood Pressure Mean 75 75 ? Pulse Ox 92 92 ? Oxygen Delivery Method Room Air Room Air ? ? 04/23/22 22:03 04/23/22 23:03 04/23/22 23:25 Temperature ? ? ? Temperature Source ? ? ? Pulse Rate 105 H 102 H ? Respiratory Rate 24 H 22 H ? Respiratory Effort ? ? Short of Breath Respiratory Depth ? ? Normal Respiratory Pattern ? ? Normal Blood Pressure ? ? ? Blood Pressure Mean ? ? ? Pulse Ox ? ? ? Oxygen Delivery Method ? ? Room Air Weight Weight: ? 227 lb? Body Mass Index (BMI) ? 35.5? Physical Exam Performance status: ECOG 2 Const alert and oriented x3 General Appearance: cooperative HEENT normocephalic and head/scalp atraumatic Eyes PERRL Neck no lymphadenopathy Resp Auscultation: rhonchi right lower and diminished lung sounds Cardio regular rhythm, S1 normal heart sound and S2 normal heart sound Rate: tachycardic GI Auscultation: hypoactive bowel sounds, distended Palpation: tender other (Generalized) + Scrotal edema Extremity normal capillary refill, trace edema Skin General Skin Exam: no breakdown Neuro no focal motor deficits and no sensory deficits noted Psych thought process normal, cooperative and affect normal Results Lab / Micro Data Result Diagrams: 04/23/22 21:59? 04/23/22 21:59? Labs: Laboratory Results - last 24 hr 04/23/22 21:59: WBC 19.4 H,?RBC 3.67 L,?Hgb 9.8 L,?Hct 29.6 L, MCV 80.7,?MCH 26.7 L, MCHC 33.1, RDW Std Deviation 40.4, RDW Coeff of Whit 14.0,?Plt Count 525 H, MPV 9.8,?Immature Gran % (Auto) 1.600 H,?Neut % (Auto) 88.6 H,?Lymph % (Auto) 1.4 L, [place] % (Auto) 7.6, Eos % (Auto) 0.4, Baso % (Auto) 0.4,?Absolute Neuts (auto) 17.2 H,?Absolute Lymphs (auto) 0.28 L, Nucleated RBC % 0, Differential Comment SEE COMMENT, Platelet Estimate MOD INC, RBC Morphology N CHROM, Anisocytosis RARE, Microcytosis RARE 04/23/22 21:59: PT 16.1 H, INR 1.3 04/23/22 21:59: Sodium 130 L, Potassium 4.6,?Chloride 91 L, Carbon Dioxide 30.0, Anion Gap 9,?BUN 85 H,?Creatinine 2.34 H, Estim Creat Clear Calc 24.32,?Est GFR (MDRD) Af Amer 35 L,?Est GFR (MDRD) Non-Af 29 L,?BUN/Creatinine Ratio 36.3 H,?Glucose 146 H, Calcium 9.8, Total Bilirubin 0.90,?AST 93 H, ALT 25, Alkaline Phosphatase 107, Total Protein 6.6,?Albumin 1.5 L,?Globulin 5.1 H,?Albumin/Globulin Ratio 0.3 L 04/23/22 21:59:?B-Natriuretic Peptide 45.8 Micro: Microbiology 04/23/22 21:41 ? Nasal Secretion ? SARS-CoV-2 & FLU Antigen (Rapid) - Final Radiology Impression Chest X-Ray? 04/23/22 20:58 IMPRESSION: ? Right lower lobe pneumonia. ? Electronically Signed: Ron Bernal MD at 21:20 EST , ? 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 PLAN: Plan - Continue medical management of sepsis, pneumonia, acute renal injury and heart failure. - I recommend hospice referral and address CODE STATUS. Follow-up with Dr. Cortez if needed - I will be available to discuss with family members if they have further questions regarding his diagnosis and prognosis.
--- NOTE | 2022-04-24 13:57 | PCM.RX.CS ---
Consult Pharmacy has been consulted to manage selected antiobiotic: Vancomycin Type of Consult: Follow-up Suspected Infection: Pneumonia Labs: Sodium 132 mmol/L (136-145) L 04/24/22 05:18 Potassium 4.0 mmol/L (3.5-5.1) 04/24/22 05:18 Chloride 92 mmol/L (98-107) L 04/24/22 05:18 Carbon Dioxide 29.0 mmol/L (21.0-32.0) 04/24/22 05:18 Anion Gap 11 (5-15) 04/24/22 05:18 BUN 88 mg/dL (7-18) H 04/24/22 05:18 Creatinine 2.63 mg/dL (0.70-1.30) H 04/24/22 05:18 Est GFR (MDRD) Af Amer 30 mL/min (>60) L 04/24/22 05:18 Est GFR (MDRD) Non-Af 25 mL/min (>60) L 04/24/22 05:18 BUN/Creatinine Ratio 33.5 RATIO (10-20) H 04/24/22 05:18 Glucose 132 mg/dL (74-106) H 04/24/22 05:18 Microbiology: Microbiology 04/23/22 21:41 Nasal Secretion SARS-CoV-2 & FLU Antigen (Rapid) - Final Goal Trough: 15-20 mcg/mL Pharmacy Plan for Drug Dosing: NEW START IV VANCOMYCIN Consulting Physician: Joan Indication: Pneumonia Goal Trough: 15-20 SrCr: 2.63 (was 2.34) CrCl: Comments: Pt received a 1500mg x1 loading dose on 04/23/22 at 2318 Vancomycin Dose: per Clinical Pharmacology dosing calculator, recommended dose due to increasing SrCr is 1000mg q24h starting 04/24/22 at 2300 Pending Level: 04/25/22 at 2230 Pharmacy Service will continue to monitor and adjust dosing as required. Follow-Up Labs: Trough Vancomycin - 04/25/22 at 2230
[2022-04-24] MEDS: 0.9% Normal Saline 1,000 ML 150 ML IV (20:23)
[2022-04-24] MEDS: Vancomycin IV 1,000 MG/200 ML BAG 200 MG IV (22:42)
[2022-04-25] VITALS (18 sets, daily range): BP systolic 76–113; BP diastolic 49–63; PULSE 94–112; RESP 17–28; TEMP 36.3–37.6; O2SAT 92–97
[2022-04-25] MEDS: Levothyroxine 100 MCG Tablet PO (03:46)
[2022-04-25] MEDS: 0.9% Normal Saline 1,000 ML 150 ML IV ×2 (03:48→13:35)
[2022-04-25] MEDS: Morphine 4 MG/ML Syringe IV ×2 (04:01→06:40)
[2022-04-25 06:30] LABS: Absolute Lymphocyte Count 0.19 X10^3/uL (0.83-4.51); Absolute Neutrophil Count 15.5 X10^3/uL (2.0-7.7); Basophil# 0.05 X10^3/uL; Basophil% 0.3 % (0-1); Eosinophil# 0.55 X10^3/uL; Eosinophils% 3.1 % (0-5); Hematocrit 25.1 % (40-54); Hemoglobin 8.1 g/dL (13.0-16.5); Lymphocyte # 0.19 X10^3/ul (0.83-4.51); Lymphocyte % 1.1 % (19-41); Mean Corp Hgb Conc 32.3 g/dL (32-36); Mean Corpuscular Hgb 27.1 pg (27.0-32.0); Mean Corpuscular Volume 83.9 fL (80-94); Mean Platelet Vol. 9.8 fl (6.2-12.0); Monocyte# 0.91 X10^3/uL; Monocyte% 5.2 % (0-10); NRBC Flagged by Analyzer 0 % (0-5); Neutrophil # 15.47 X10^3/uL (2.7-7.7); Neutrophil % 87.6 % (47-70); POSITIVE DIFFERENTIAL YES; Platelet Count 419 K/mm3 (150-450); RBC Distribution Width CV 14.3 % (11.6-14.6); RBC Distribution Width SD 43.8 fl (35.1-43.9); Red Blood Count 2.99 M/mm3 (4.6-6.2); White Blood Count 17.6 K/mm3 (4.4-11.0)
[2022-04-25 06:32] LABS: Differential Indicated SCAN CRITERIA MET
[2022-04-25] MEDS: Acetaminophen 500 MG Tablet 1000 MG PO (06:33)
[2022-04-25 06:51] LABS: Differential Comment SCANNED
[2022-04-25 07:01] LABS: Anion Gap 11 (5-15); BUN 97 mg/dL (7-18); BUN/Creat Ratio 27.3 RATIO (10-20); Calcium,Total 8.7 mg/dL (8.5-10.1); Chloride 97 mmol/L (98-107); Creatinine, Serum 3.55 mg/dL (0.70-1.30); EST Glomerular Filtration Rate 18 mL/min (>60); Est Glom Filt Rate - Afr Amer 22 mL/min (>60); Estimated Creatinine Clearance 16.03 ml/min; Glucose 135 mg/dL (74-106); Potassium 4.4 mmol/L (3.5-5.1); Sodium Level 132 mmol/L (136-145)
[2022-04-25] MEDS: Pantoprazole Sodium 40 MG Tablet PO (09:33)
[2022-04-25] MEDS: Potassium Chloride Oral Tablet 10 MEQ PO (09:33)
[2022-04-25] MEDS: Megestrol Acetate 400 MG/10 ML UDC 200 MG PO ×3 (09:40→16:54)
[2022-04-25] MEDS: Ensure Plus High Protein 120 ML LIQUID PO (09:40)
--- NOTE | 2022-04-25 10:15 | PCM.PN.HOSP ---
Subjective Subjective For about the same as yesterday. He does become periodically hypotensive that is responsive to IV fluids and he is not requiring increased oxygen Objective Data Objective Data Vital Signs: Vital Signs Temp Pulse Resp BP Pulse Ox O2 Del Method O2 Flow Rate 97.6 F L 104 H 18 76/49 L 94 Nasal Cannula 2 04/25/22 09:30 04/25/22 09:30 04/25/22 09:30 04/25/22 09:30 04/25/22 09:30 04/25/22 09:30 04/25/22 09:30 Oxygen Flow Rate (L/min) 2 Oxygen Delivery Method Nasal Cannula Weight: 232 lb 12.93 oz Body Mass Index (BMI) 36.4 Intake & Output: Intake and Output for Last 24 Hours 04/24/22 04/25/22 04/26/22 03:59 03:59 03:59 Intake Total 630 / 630 6071.67 / 6071.67 Output Total 0 / 0 150 / 150 Balance 630 / 630 6071.67 / 6071.67 -150 / -150 Lab / Micro Data Result Diagrams: 04/25/22 06:10 04/25/22 06:10 Labs: Laboratory Results - last 24 hr 04/25/22 06:10: WBC 17.6 H, RBC 2.99 L, Hgb 8.1 L, Hct 25.1 L, MCV 83.9, MCH 27.1, MCHC 32.3, RDW Std Deviation 43.8, RDW Coeff of Whit 14.3, Plt Count 419, MPV 9.8, Immature Gran % (Auto) 2.700 H, Neut % (Auto) 87.6 H, Lymph % (Auto) 1.1 L, [place] % (Auto) 5.2, Eos % (Auto) 3.1, Baso % (Auto) 0.3, Absolute Neuts (auto) 15.5 H, Absolute Lymphs (auto) 0.19 L, Nucleated RBC % 0, Differential Comment SCANNED 04/25/22 06:10: Sodium 132 L, Potassium 4.4, Chloride 97 L, Carbon Dioxide 24.0, Anion Gap 11, BUN 97 H, Creatinine 3.55 H, Estim Creat Clear Calc 16.03, Est GFR (MDRD) Af Amer 22 L, Est GFR (MDRD) Non-Af 18 L, BUN/Creatinine Ratio 27.3 H, Glucose 135 H, Calcium 8.7 Micro: Microbiology 04/23/22 21:41 Nasal Secretion SARS-CoV-2 & FLU Antigen (Rapid) - Final Physical Exam Narrative General: Alert, Oriented x3, Cooperative, No apparent distress HEENT: Atraumatic, PERRLA, EOMI, Normocephalic Oral: Moist Mucosa Neck: Supple, No JVD Lungs: Diminished right lower lobe, Normal air movement, No rhonchi, No wheeze, No rales Cardiovascular: Tachycardic, Regular Rhythm, Normal S1, Normal S2, No murmurs Abdomen: Soft, Non Tender, Non-Distended, No Hepato-splenomegaly Extremities: No edema, Capillary Refill Less than 3 Seconds Skin: No rashes, No breakdown : Fairly significant scrotal and penile swelling Baumann in place Musculoskeletal: No Tenderness to Palpation of Joints or Extremities Neurological: Cranial nerves II-XII grossly intact, Motor Exam 5/5 strength throughout, Sensory exam intact to light touch and pain Psych/Mental Status: Flat affect, Appropriate Assessment & Plan Assessment/Plan (1) Sarcoma: (2) LAVONNE (acute kidney injury): (3) Pneumonia: (4) Essential hypertension: (5) Acquired hypothyroidism: (6) GERD (gastroesophageal reflux disease): PLAN: Plan 1. Sepsis secondary to right lower lobe pneumonia/LAVONNE/scrotal swelling ? He was hospitalized in [facility] therefore we will place him on Zosyn and vancomycin ? We will obtain a sputum culture ? She did receive 2 L of fluid because of some transient hypotension and will increase IV fluids 150 cc an hour ? We will monitor urine output ? We will obtain blood cultures ? Renal function is worsening, not unexpected we will continue with aggressive IV fluids ? The scrotal swelling has been going on for several weeks unsure if this has anything to do with the sarcoma in his lymph nodes however urology was consulted and they were able to place a Baumann 2. Metastatic sarcoma ? Unsure as to the primary location according to the son he had lymph nodes biopsied in his abdomen the pathology report demonstrated's undifferentiated sarcoma that is aggressive. In discussion with oncology they did not feel that he would be a candidate for any type of chemotherapy and this type of cancer has a very poor prognosis so they recommended hospice care. I had a 25-minute discussion with the family on advance care planning options and everyone agreed to proceed with becoming a DNR CCA but continuing treatment for his pneumonia to see if we can discharge him home in stable condition 3. HTN/HLD/CAD ? Given his hypotension and the need for fluid resuscitation, will hold his blood pressure medication since ? Can resume his statin ? He does have a 95% stenosis in his distal left circumflex that could not be stented with normal cardiac function 4. Hypothyroidism ? Stable ? Continue Synthroid DVT: SCDs Charges/Coding Visit Charges Inpatient E&M: 94206 Subs Hosp L2 Procedures Hospitalists Procedures: 21468 Advncd Care Plan 30 Min
--- NOTE | 2022-04-25 11:19 | CASEMGMT ---
Addendum entered by Kelly Rudolph 04/25/22 14:52: Pt's son in Law came back to [facility] after trip home and found HCPOA/LW documents. Some confusion regarding the documents occured. However, they are now on pt chart. Addendum entered by Kelly Rudolph 04/25/22 11:50: Son in Law met with SW again to inform there is NO HCPOA. There was a misunderstanding. Son in law asked how to fix this. SW informed since pt has no children would be next legal decision makers, so daughter Pia would be who makes choices for pt. Son in law voiced understanding. Original Note: Social Work? ? SW in to pt room to verify advance directives. Pt's Son In Law confirmed has pt has AD and named pt Daughter, Pia Santiago, as agent. SW made aware documents are not on file and if pt would like to bring these documents in the documents can be dropped off at the Medical Records department. Son in law voiced understanding.?? ? MARY Peña? ?
--- NOTE | 2022-04-25 11:52 | CASEMGMT ---
Social Work ELSA met with Dr. Franco who discussed Hospice. Dr. guillen met with family and after a conversation it has been decided that a Hospice referral will be held until tomorrow or Saturday, if pt does not begin to improve in health. informed family would like information on care facilities in the area, should pt and family sign with Hospice. ELSA printed list of SNF providers including quality and resource use data and consistent with the patient?s preferred geographic region, medical needs, and insurance network from the [facility] Guide and provided to family. ELSA discussed with family that with next few days tours could be taken to find right facility. Family had concerns about nursing facilities so having days will provide opportunity to find appropriate level of care for pt. ELSA provided ELSA Zarina's phone number to the family for contact, if needed, tomorrow. PLAN: Dr. Franco to consult with ELSA tomorrow on possibility to send Hospice Referral. MARY Peña
--- NOTE | 2022-04-25 15:29 | EKG12_ITS ---
Test Reason : CP Blood Pressure : / mmHG Vent. Rate : 098 BPM Atrial Rate : 098 BPM P-R Int : 114 ms QRS Dur : 086 ms QT Int : 364 ms P-R-T Axes : 046 004 012 degrees QTc Int : 464 ms Normal sinus rhythm Nonspecific T wave abnormality Abnormal ECG When compared with ECG of 23-APR-2022 20:51, Nonspecific T wave abnormality, worse in Lateral leads Confirmed by VANESSA KIM, MAGI ([id number]), photographic editor SOPHIA ROB ([id number]) on 05/01/2022 11:13:14 AM Referred By: LIAN Confirmed By:KALIE MENDEZ MD
[2022-04-25 16:10] LABS: Troponin-I HS 28 pg/mL (3.0-78.0)
--- NOTE | 2022-04-25 16:15 | PCM.RX.CS ---
Consult Pharmacy has been consulted to manage selected antiobiotic: Vancomycin Type of Consult: Follow-up Prior Doses of Antibiotics Received/Current Regimen: current dose is vanc 1000mg q24h Labs: Sodium 132 mmol/L (136-145) L 04/25/22 06:10 Potassium 4.4 mmol/L (3.5-5.1) 04/25/22 06:10 Chloride 97 mmol/L (98-107) L 04/25/22 06:10 Carbon Dioxide 24.0 mmol/L (21.0-32.0) 04/25/22 06:10 Anion Gap 11 (5-15) 04/25/22 06:10 BUN 97 mg/dL (7-18) H 04/25/22 06:10 Creatinine 3.55 mg/dL (0.70-1.30) H 04/25/22 06:10 Est GFR (MDRD) Af Amer 22 mL/min (>60) L 04/25/22 06:10 Est GFR (MDRD) Non-Af 18 mL/min (>60) L 04/25/22 06:10 BUN/Creatinine Ratio 27.3 RATIO (10-20) H 04/25/22 06:10 Glucose 135 mg/dL (74-106) H 04/25/22 06:10 Microbiology: Microbiology 04/23/22 21:41 Nasal Secretion SARS-CoV-2 & FLU Antigen (Rapid) - Final Weight used for dosin.6 kg Estimated Creatinine Clearance: 19.9ml/min Goal Trough: 15-20 mcg/mL Pharmacy Plan for Drug Dosing: The patient's SCr gage to 3.55 today (CrCl = 19.9ml/min using adjusted body weight to calculate) so will hold the current dose and wait until the vanc level is back tonight before dosing further. Will keep the order for the vanc level tonight at 22:30. Pharmacy Service will continue to monitor and adjust dosing as required. Follow-Up Labs: Trough Vancomycin Labs to be done on [date and time ordered]: 04/25/22 22:30
--- NOTE | 2022-04-25 16:35 | RAD_ITS ---
STUDY: X-RAY CHEST REASON FOR EXAM: Male, 76 years old. Pneumonia TECHNIQUE: Portable, upright, AP chest x-ray COMPARISON: 04/23/2022 RAD/Chest 1 View (Portable) IMPRESSION: Increased right pleural effusion. Similar bilateral pulmonary infiltrates. Electronically Signed: Evans Mann MD at 17:19 EST ,
[2022-04-25] MEDS: Midodrine HCl 5 MG Tablet 10 MG PO (16:54)
[2022-04-25 17:17] LABS: Troponin-I HS 30 pg/mL (3.0-78.0)
[2022-04-25] MEDS: Morphine 2 MG/ML Syringe 1 MG IV (20:38)
[2022-04-25] MEDS: 0.9% Saline Lock 10 ML Syringe IV (20:39)
[2022-04-25 22:53] LABS: Vancomycin, Trough Level 20.7 ug/mL (5.0-15.0)
--- NOTE | 2022-04-25 23:22 | PCM.PN.BLA ---
Progress Note Nurse reports concern the patient is getting fluid overloaded so his fluid has been off. order to stop ivf. With general condition will set allowable map at 60. With map < 60 transfer to the unit and start low dose levo.
[2022-04-26] VITALS (15 sets, daily range): BP systolic 76–107; BP diastolic 43–64; PULSE 95–112; RESP 16–22; TEMP 36.4–37.1; O2SAT 93–95
--- NOTE | 2022-04-26 00:19 | PCM.RX.CS ---
Consult Pharmacy has been consulted to manage selected antiobiotic: Vancomycin Type of Consult: Follow-up Suspected Infection: Pneumonia Prior Doses of Antibiotics Received/Current Regimen: Medications Discontinued Medications Vancomycin HCl (Vancomycin) 1,000 mg in 200 mls @ 200 mls/hr IV Q24H DEMARCUS Last Admin: 04/24/22 23:42 Dose: Infused Labs: Sodium 132 mmol/L (136-145) L 04/25/22 06:10 Potassium 4.4 mmol/L (3.5-5.1) 04/25/22 06:10 Chloride 97 mmol/L (98-107) L 04/25/22 06:10 Carbon Dioxide 24.0 mmol/L (21.0-32.0) 04/25/22 06:10 Anion Gap 11 (5-15) 04/25/22 06:10 BUN 97 mg/dL (7-18) H 04/25/22 06:10 Creatinine 3.55 mg/dL (0.70-1.30) H 04/25/22 06:10 Est GFR (MDRD) Af Amer 22 mL/min (>60) L 04/25/22 06:10 Est GFR (MDRD) Non-Af 18 mL/min (>60) L 04/25/22 06:10 BUN/Creatinine Ratio 27.3 RATIO (10-20) H 04/25/22 06:10 Glucose 135 mg/dL (74-106) H 04/25/22 06:10 Vancomycin Trough 20.7 ug/mL (5.0-15.0) H 04/25/22 22:27 Microbiology: Microbiology 04/23/22 21:41 Nasal Secretion SARS-CoV-2 & FLU Antigen (Rapid) - Final Weight used for dosin.6 kg Estimated Creatinine Clearance: 19.8 Goal Trough: 15-20 mcg/mL Pharmacy Plan for Drug Dosing: Vancomycin level taken 11? hours post-dose was high at 20.7mcg/ml. With the calculated CrCl of 19.8 (by adjusted body weight), and the sharp increase in SCr, it will be best to hold dosing until a random level is drawn in 24 hours. That level and reviewing of the next SCr level will determine further vancomycin dosing. Pharmacy Service will continue to monitor and adjust dosing as required. Follow-Up Labs: Trough Vancomycin - random Labs to be done on [date and time ordered]: 04/26/22 @2230 random
[2022-04-26] MEDS: Morphine 2 MG/ML Syringe 1 MG IV (03:39)
[2022-04-26] MEDS: 0.9% Saline Lock 10 ML Syringe IV ×3 (03:39→18:44)
[2022-04-26] MEDS: Morphine 4 MG/ML Syringe IV ×3 (06:23→18:44)
[2022-04-26 06:55] LABS: Absolute Lymphocyte Count 0.22 X10^3/uL (0.83-4.51); Absolute Neutrophil Count 15.8 X10^3/uL (2.0-7.7); Basophil# 0.06 X10^3/uL; Basophil% 0.3 % (0-1); Eosinophil# 0.37 X10^3/uL; Eosinophils% 2.1 % (0-5); Hematocrit 26.3 % (40-54); Hemoglobin 8.5 g/dL (13.0-16.5); Lymphocyte # 0.22 X10^3/ul (0.83-4.51); Lymphocyte % 1.2 % (19-41); Mean Corp Hgb Conc 32.3 g/dL (32-36); Mean Corpuscular Hgb 27.3 pg (27.0-32.0); Mean Corpuscular Volume 84.6 fL (80-94); Mean Platelet Vol. 10.3 fl (6.2-12.0); Monocyte# 0.82 X10^3/uL; Monocyte% 4.6 % (0-10); NRBC Flagged by Analyzer 0.2 % (0-5); Neutrophil # 15.75 X10^3/uL (2.7-7.7); Neutrophil % 89.1 % (47-70); POSITIVE DIFFERENTIAL YES; Platelet Count 392 K/mm3 (150-450); RBC Distribution Width CV 14.6 % (11.6-14.6); RBC Distribution Width SD 44.7 fl (35.1-43.9); Red Blood Count 3.11 M/mm3 (4.6-6.2); White Blood Count 17.7 K/mm3 (4.4-11.0)
[2022-04-26 06:56] LABS: Differential Indicated SCAN CRITERIA MET
[2022-04-26 07:28] LABS: Differential Comment SCANNED
[2022-04-26 07:35] LABS: Anion Gap 12 (5-15); BUN 109 mg/dL (7-18); BUN/Creat Ratio 23.2 RATIO (10-20); Calcium,Total 8.6 mg/dL (8.5-10.1); Chloride 98 mmol/L (98-107); Creatinine, Serum 4.69 mg/dL (0.70-1.30); EST Glomerular Filtration Rate 13 mL/min (>60); Est Glom Filt Rate - Afr Amer 16 mL/min (>60); Estimated Creatinine Clearance 12.14 ml/min; Glucose 100 mg/dL (74-106); Potassium 4.7 mmol/L (3.5-5.1); Sodium Level 132 mmol/L (136-145)
--- NOTE | 2022-04-26 10:03 | CT_ITS ---
STUDY: CT ABDOMEN AND PELVIS WITHOUT CONTRAST REASON FOR EXAM: Male, 76 years old. Lopes Placement. History of sarcoma with metastasis. Cirrhosis. RADIATION DOSAGE (If Supplied By Facility): CTDIvol = ( 21.44 ) mGy, DLP = ( 2200.09 ) mGycm TECHNIQUE: Transaxial images were obtained from the dome of the diaphragm to the symphysis pubis without oral contrast, and without intravenous contrast. Sagittal and coronal images were reconstructed. Individualized dose optimization techniques were used for this CT. COMPARISON: Comparison is made with prior study dated 04/09/2022. FINDINGS: Bilateral pleural effusions right greater than left with bibasilar atelectasis. Coronary artery calcification. There is a diffuse contour abnormality of the liver consistent with cirrhotic changes. Sludge is seen within the gallbladder lumen. I cannot exclude tiny gallstones. Normal spleen. Normal pancreas. Ascites. Normal bilateral adrenal glands. Normal right kidney. Normal left kidney. Normal visualized stomach. Normal small intestine. There are multiple colonic diverticula consistent with diverticulosis. The appendix is visualized and appears normal. There is diffuse atherosclerotic calcification of the abdominal aorta, without a demonstrated aneurysm. Normal inferior vena cava. There is retroperitoneal lymphadenopathy with enlarged nodes greater than 10-15mm in the short axis. Lymph nodes are also seen in the root of the mesentery. Pelvic lymphadenopathy. The LOPES catheter seen within a decompressed urinary bladder. Diffuse increased subcutaneous fluid involving the lateral aspects of the abdomen as well as in the lower abdomen and pelvis. Small bilateral inguinal hernias containing fat. There are diffuse degenerative changes of the visualized lumbar spine. Loss of the normal lumbar lordosis. CT/Abdomen/Pelvis without Cont IMPRESSION: Diffuse retroperitoneal lymphadenopathy as well as pelvic lymphadenopathy. Lymph nodes are also seen in the root of the mesentery. Small volume ascites. Bilateral pleural effusions right greater than left with bibasilar atelectasis. Diffuse subcutaneous edema. A LOPES catheter is seen with a decompressed urinary bladder. Electronically Signed: José Miguel Nguyen MD at 11:09 EST ,
[2022-04-26] MEDS: Midodrine HCl 5 MG Tablet 10 MG PO (11:15)
--- NOTE | 2022-04-26 12:41 | PN.HOSP_ITS ---
Subjective Subjective Not very interactive today, there was concern by nursing staff overnight that he is fluid overloaded even though he is not requiring any more oxygen his IV fluids were discontinued. Objective Data Objective Data Vital Signs: Vital Signs Temp Pulse Resp BP Pulse Ox O2 Del Method O2 Flow Rate 98.8 F 103 H 16 80/43 L 93 Nasal Cannula 2 04/26/22 12:31 04/26/22 12:31 04/26/22 12:31 04/26/22 12:31 04/26/22 12:31 04/26/22 12:31 04/26/22 12:31 Oxygen Flow Rate (L/min) 2 Oxygen Delivery Method Nasal Cannula Weight: 232 lb 12.93 oz Body Mass Index (BMI) 36.4 Intake & Output: Intake and Output for Last 24 Hours 04/25/22 04/26/22 04/27/22 03:59 03:59 03:59 Intake Total 6071.67 / 6071.67 2350 / 2350 150 / 150 Output Total 0 / 0 170 / 170 0 / 0 Balance 6071.67 / 6071.67 2180 / 2180 150 / 150 Lab / Micro Data Result Diagrams: 04/26/22 05:52 04/26/22 05:52 Labs: Laboratory Results - last 24 hr 04/25/22 06:10: Troponin I High Sens 28 04/25/22 16:45: Troponin I High Sens 30 04/25/22 22:27: Vancomycin Trough 20.7 H 04/26/22 05:52: WBC 17.7 H, RBC 3.11 L, Hgb 8.5 L, Hct 26.3 L, MCV 84.6, MCH 27.3, MCHC 32.3, RDW Std Deviation 44.7 H, RDW Coeff of Whit 14.6, Plt Count 392, MPV 10.3, Immature Gran % (Auto) 2.700 H, Neut % (Auto) 89.1 H, Lymph % (Auto) 1.2 L, Sutton % (Auto) 4.6, Eos % (Auto) 2.1, Baso % (Auto) 0.3, Absolute Neuts (auto) 15.8 H, Absolute Lymphs (auto) 0.22 L, Nucleated RBC % 0.2, Differential Comment SCANNED 04/26/22 05:52: Sodium 132 L, Potassium 4.7, Chloride 98, Carbon Dioxide 22.0, Anion Gap 12, BUN 109 H*, Creatinine 4.69 H, Estim Creat Clear Calc 12.14, Est GFR (MDRD) Af Amer 16 L, Est GFR (MDRD) Non-Af 13 L, BUN/Creatinine Ratio 23.2 H , Glucose 100, Calcium 8.6 Micro: Microbiology 04/24/22 13:35 Blood Culture (Wb) - Anticubital Left Blood Culture - Preliminary No growth in 48 hours. 04/23/22 21:41 Nasal Secretion SARS-CoV-2 & FLU Antigen (Rapid) - Final Radiography Diagnostic Testing: Radiology Impression Chest X-Ray 04/25/22 16:35 IMPRESSION: Increased right pleural effusion. Similar bilateral pulmonary infiltrates. Electronically Signed: Evans Mann MD at 17:19 EST , Abdomen/Pelvis CT 04/26/22 10:03 IMPRESSION: Diffuse retroperitoneal lymphadenopathy as well as pelvic lymphadenopathy. Lymph nodes are also seen in the root of the mesentery. Small volume ascites. Bilateral pleural effusions right greater than left with bibasilar atelectasis. Diffuse subcutaneous edema. A LOPES catheter is seen with a decompressed urinary bladder. Electronically Signed: José Miguel Nguyen MD at 11:09 EST , Physical Exam Narrative General: Somnolent, Cooperative, No apparent distress HEENT: Atraumatic, PERRLA, EOMI, Normocephalic Oral: Moist Mucosa Neck: Supple, No JVD Lungs: Diminished right lower lobe, Normal air movement, No rhonchi, No wheeze, No rales Cardiovascular: Tachycardic, Regular Rhythm, Normal S1, Normal S2, No murmurs Abdomen: Soft, Non Tender, Non-Distended, No Hepato-splenomegaly Extremities: edema, Capillary Refill Less than 3 Seconds Skin: No rashes, No breakdown : Fairly significant scrotal and penile swelling Lopes in place Musculoskeletal: No Tenderness to Palpation of Joints or Extremities Neurological: Cranial nerves II-XII grossly intact, Motor Exam 5/5 strength throughout, Sensory exam intact to light touch and pain Psych/Mental Status: Flat affect, Appropriate Assessment & Plan Assessment/Plan (1) Sarcoma: (2) LAVONNE (acute kidney injury): (3) Pneumonia: (4) Essential hypertension: (5) Acquired hypothyroidism: (6) GERD (gastroesophageal reflux disease): PLAN: Plan 1. Sepsis secondary to right lower lobe pneumonia/LAVONNE/scrotal swelling ? He was hospitalized in [facility] therefore we will place him on Zosyn and vancomycin ? We will obtain a sputum culture ? Fluids were discontinued secondary to concerns for overload despite stable respiratory status ? He has had no urine output so a CT scan today was obtained to verify position of the Lopes and it is inside a decompressed bladder therefore his elevation in his creatinine is indicative of an organic renal failure not obstructive uropathy ? We will obtain blood cultures ? Renal function is worsening ? The scrotal swelling has been going on for several weeks unsure if this has anything to do with the sarcoma in his lymph nodes however urology was consulted and they were able to place a Lopes ? 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 In discussion with oncology they did not feel that he would be a candidate for any type of chemotherapy and this type of cancer has a very poor prognosis so they recommended hospice care. 3. HTN/HLD/CAD ? Given his hypotension and the need for fluid resuscitation, will hold his blood pressure medication ? Can resume his statin ? He does have a 95% stenosis in his distal left circumflex that could not be stented with normal cardiac function 4. Hypothyroidism ? Stable ? Continue Synthroid DVT: SCDs Charges/Coding Visit Charges Inpatient E&M: 63979 Subs Hosp L2
--- NOTE | 2022-04-26 13:26 | CASEMGMT ---
Addendum entered by Zarina Sue 04/26/22 16:19: Hospice Nurse here to assess pt. [facility]. Physician notified and agreeable to discharge plan. ELSA set up transportation through [employer] with [employer]. Phone call to pt son in law Mike and updated on time of picket labor union. Son requesting 6pm picket [employer]. SW called [facility] and they can transport at 5pm or after 8. Mike updated and chosing 5pm. Phone call to [facility] and updated on D/C time. Nursing updated. Plan: Inpatient Hospice Unit MARY Caballero Original Note: Social Work Per physician, pt to be referred to hospice for Inpatient facility. ELSA met with pt and son in law Mike Silverio. Pt sleeping soundly and did not awake. Mike states he has spoke with pt daughter and she would like to pursue hospice with [facility] placement. ELSA explained process. Referral made to Brenda at [facility] and clinical information faxed. Hospice to review referral and will reach out to Mike to set appointment with Mike and pt elton Roy for later today. Nursing updated. MARY Caballero
--- NOTE | 2022-04-26 15:43 | PCM.DC ---
Discharge Instructions Follow Up Care Test Results: Test results from this visit will be discussed in further detail at your follow-up appointment, if applicable. Discharge Plan Admission Admit Date/Time: 04/24/22 00:04 Attending Provider: Joseph Franco Primary Care Provider: Michael Kellogg Consulting Providers: Evans Hawley ; Mark Treviño ; Ana Deluca ; Dorothy Saxena ; Isacc Feliz ; Marilee Lowery ; Edie Cisneros ; Starla Cornelius [employer] Discharge Orders/Prescriptions Prescriptions: Continued amlodipine 2.5 mg tablet 2.5 mg PO DAILY Qty: 90 3RF atorvastatin 40 mg tablet 40 mg PO DAILY Qty: 90 3RF clopidogrel 75 mg tablet 75 mg PO DAILY Qty: 90 3RF metoprolol tartrate 25 mg tablet 25 mg PO BID Qty: 180 3RF aspirin [Adult Low Dose Aspirin] 81 mg tablet,delayed release (DR/EC) 81 mg PO DAILY Qty: 90 3RF megestrol 400 mg/10 mL (40 mg/mL) Suspension 200 mg PO 4X/DAY potassium chloride 10 mEq Capsule, Extended Release 10 meq PO DAILY sennosides-docusate sodium [Senna with Docusate Sodium] 8.6-50 mg Tablet 2 tab PO QHS PRN PRN (Reason: Constipation) docusate sodium [Colace] 100 mg Capsule 100 mg PO BID PRN PRN (Reason: Constipation) furosemide 20 mg Tablet 20 mg PO BID ondansetron 4 mg Tablet,Disintegrating 4 mg PO Q8H PRN PRN (Reason: Nausea) Jardiance 10 mg Tablet 10 mg PO DAILY doxycycline hyclate [Vibramycin] 100 mg Capsule 100 mg PO BID Label Comments: for 7 days started 04/20/22 amoxicillin-pot clavulanate 875-125 mg Tablet 1 tab PO Q12H Rx Instructions: x7 days started 04/20/22 pantoprazole 40 mg tablet,delayed release (DR/EC) 40 mg PO DAILY levothyroxine 100 mcg tablet 100 mcg PO DAILY fluticasone propionate [Allergy Relief (fluticasone)] 50 mcg/actuation spray,suspension 2 spray intranasal DAILY PRN (Reason: allergies) Rx Instructions: administer into each nostril Referrals / Follow Up: Michael Kellogg MD [Primary Care Provider] - Disposition Disposition (needs filled in before D/C Order can be placed): Hospice in Medical Facility
--- NOTE | 2022-04-26 15:47 | PCM.DC.SUM ---
Providers Date of Admission: 04/24/22 Primary Care Physician: Dr. Michael Kellogg MD Consultations 04/24/22 00:53 Consult: Oncology/Hematology Routine Consulting Provider: Ana Deluca Reason for Consult: Metastatic disease EMERGENT Consult: No Notified: Yes Date Notified: 04/24/22 Time Notified: 08:05 Method of Notification: page via cider press operator 04/24/22 07:10 Consult: Urology Routine Consulting Provider: Mark Treviño Reason for Consult: severe penile edema with inability to urinate with urge EMERGENT Consult: No Notified: Yes Date Notified: 04/24/22 Time Notified: 07:33 Method of Notification: Text Comments:: paged via cider press operator; phone call back received 04/26/22 13:00 Consult: Hospice / Palliative Care Routine Consulting Provider: [facility] Reason for Consult: end of life EMERGENT Consult: No Notified: Yes Date Notified: 04/26/22 Time Notified: 13:00 Method of Notification: Verbal Reason For Visit: HOSPITAL-ACQUIRED PNEUMONIA, METASTATIC DISEASE Diagnosis Discharge Diagnosis (1) Sarcoma: Status: Acute Code(s): C49.9 - Malignant neoplasm of connective and soft tissue, unspecified (2) LAVONNE (acute kidney injury): Status: Acute Code(s): N17.9 - Acute kidney failure, unspecified (3) Pneumonia: Status: Acute Code(s): J18.9 - Pneumonia, unspecified organism (4) Essential hypertension: Status: Chronic Code(s): I10 - Essential (primary) hypertension (5) Acquired hypothyroidism: Status: Acute Code(s): E03.9 - Hypothyroidism, unspecified (6) GERD (gastroesophageal reflux disease): Status: Acute Code(s): K21.9 - Gastro-esophageal reflux disease without esophagitis Plan 1. Sepsis secondary to right lower lobe pneumonia/LAVONNE/scrotal swelling ? He was hospitalized in [facility] therefore we will place him on Zosyn and vancomycin ? We will obtain a sputum culture ? Fluids were discontinued secondary to concerns for overload despite stable respiratory status ? He has had no urine output so a CT scan today was obtained to verify position of the Lopes and it is inside a decompressed bladder therefore his elevation in his creatinine is indicative of an organic renal failure not obstructive uropathy ? We will obtain blood cultures ? Renal function is worsening ? The scrotal swelling has been going on for several weeks unsure if this has anything to do with the sarcoma in his lymph nodes however urology was consulted and they were able to place a Lopes ? 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 In discussion with oncology they did not feel that he would be a candidate for any type of chemotherapy and this type of cancer has a very poor prognosis so they recommended hospice care. 3. HTN/HLD/CAD ? Given his hypotension and the need for fluid resuscitation, will hold his blood pressure medication ? Can resume his statin ? He does have a 95% stenosis in his distal left circumflex that could not be stented with normal cardiac function 4. Hypothyroidism ? Stable ? Continue Synthroid DVT: SCDs Medications at Discharge Home Medications levothyroxine 100 mcg tablet 100 mcg PO DAILY 05/10/21 pantoprazole 40 mg tablet,delayed release 40 mg PO DAILY 05/10/21 amlodipine 2.5 mg tablet 2.5 mg PO DAILY #90 tabs 01/30/22 aspirin 81 mg tablet,delayed release (Adult Low Dose Aspirin) 81 mg PO DAILY #90 tabs 01/30/22 atorvastatin 40 mg tablet 40 mg PO DAILY #90 tabs 01/30/22 clopidogrel 75 mg tablet 75 mg PO DAILY #90 tabs 01/30/22 fluticasone propionate 50 mcg/actuation nasal spray,suspension (Allergy Relief (fluticasone)) 2 spray intranasal DAILY PRN allergies 01/30/22 metoprolol tartrate 25 mg tablet 25 mg PO BID #180 tabs 01/30/22 amoxicillin 875 mg-potassium clavulanate 125 mg tablet 1 tab PO Q12H 04/23/22 docusate sodium 100 mg capsule (Colace) 100 mg PO BID PRN PRN Constipation 04/23/22 doxycycline hyclate 100 mg capsule (Vibramycin) 100 mg PO BID 04/23/22 empagliflozin 10 mg tablet (Jardiance) 10 mg PO DAILY 04/23/22 furosemide 20 mg tablet 20 mg PO BID 04/23/22 megestrol 400 mg/10 mL (40 mg/mL) oral suspension 200 mg PO 4X/DAY 04/23/22 ondansetron 4 mg disintegrating tablet 4 mg PO Q8H PRN PRN Nausea 04/23/22 potassium chloride 10 mEq capsule,extended release 10 meq PO DAILY 04/23/22 sennosides 8.6 mg-docusate sodium 50 mg tablet (Senna with Docusate Sodium) 2 tab PO QHS PRN PRN Constipation 04/23/22 Hospital Course Operations None Procedures None Summary of Care Provided Minutes Spent on Discharge: 45 Hospital Course: Per HPI: ERICK CONTRERAS, is a 76 M who presents with shortness of breath.? Patient was [facility] and [facility] for the past 2 weeks where he was diagnosed with sarcoma and pathology and staging reports are pending.? He has per my review of the medical record? obtained so far he has thickening of the colon at the hepatic flexure with cirrhosis of the liver, numerous paraaortic lymph nodes consistent in size with metastatic disease along with a right lower lobe lesion approximately 1.6 cm consistent with metastatic disease as well.? He was seen as an outpatient by his primary care physician Dr. Michael Kellogg at the [facility] and was hypoxic and tachycardic therefore, he was sent to the emergency room for admission.? The patient's primary language is Yoruba however, he does understand Serbian and his daughter was present to help with interpretation.? He complains of 9/10 abdominal pain with bloating.? He feels weak and tired and has a poor appetite.? Chest x-ray reveals a right lower lobe pneumonia.? And oxygen has improved with 2 L nasal cannula to 95% from the mid 80% range.? He will be admitted to general medical floor with telemetry and consults obtained for hematology oncology. Hospital Course: 1. Septic shock secondary to right lower lobe pneumonia/LAVONNE/scrotal swelling?76-year-old male presents from home with increased shortness of breath with lower extremity swelling and edema from a sarcoma. He had a biopsy done in [facility] which demonstrates very aggressive sarcoma and he is not a candidate for intervention based on his cardiac history as well as current condition. He was started on vancomycin and Zosyn as well as given aggressive fluid resuscitation all without any significant benefit. Multiple conversations were had with the family about intervention including placing in the ICU to have a central line placed and started on Levophed however he specifically said that he did not want to be very aggressive since there is no care for his cancer he would just prefer to go hospice. Throughout his hospital stay his renal function worsened, a CT scan was obtained today to verify location of the Lopes as he is having no urine output. The Lopes is in his bladder which is decompressed despite having over 8 L of fluid. He was started on midodrine to help support his blood pressure as well but at this time given the fact that he does have renal failure that is not due to an obstructive uropathy, family has elected to proceed with hospice. They did discuss the case with hospice and hospice is agreed for transfer to the inpatient hospice unit. 2. Hypertension, hyperlipidemia, coronary artery disease, hypothyroidism are all chronic medical conditions which complicate his care. Weight / BMI Weight Weight: 232 lb 12.93 oz Body Mass Index (BMI) 36.4 ABG / Lab / Microbiology Data Result Diagrams: 04/26/22 05:52 04/26/22 05:52 Laboratory: Laboratory Results - last 24 hr 04/25/22 06:10: Troponin I High Sens 28 04/25/22 16:45: Troponin I High Sens 30 04/25/22 22:27: Vancomycin Trough 20.7 H 04/26/22 05:52: WBC 17.7 H, RBC 3.11 L, Hgb 8.5 L, Hct 26.3 L, MCV 84.6, MCH 27.3, MCHC 32.3, RDW Std Deviation 44.7 H, RDW Coeff of Whit 14.6, Plt Count 392, MPV 10.3, Immature Gran % (Auto) 2.700 H, Neut % (Auto) 89.1 H, Lymph % (Auto) 1.2 L, [place] % (Auto) 4.6, Eos % (Auto) 2.1, Baso % (Auto) 0.3, Absolute Neuts (auto) 15.8 H, Absolute Lymphs (auto) 0.22 L, Nucleated RBC % 0.2, Differential Comment SCANNED 04/26/22 05:52: Sodium 132 L, Potassium 4.7, Chloride 98, Carbon Dioxide 22.0, Anion Gap 12, BUN 109 H*, Creatinine 4.69 H, Estim Creat Clear Calc 12.14, Est GFR (MDRD) Af Amer 16 L, Est GFR (MDRD) Non-Af 13 L, BUN/Creatinine Ratio 23.2 H, Glucose 100, Calcium 8.6 Microbiology: Microbiology 04/24/22 13:35 Blood Culture (Wb) - Anticubital Left Blood Culture - Preliminary No growth in 48 hours. 04/23/22 21:41 Nasal Secretion SARS-CoV-2 & FLU Antigen (Rapid) - Final Radiography Diagnostic Testing: Radiology Impression Chest X-Ray 04/25/22 16:35 IMPRESSION: Increased right pleural effusion. Similar bilateral pulmonary infiltrates. Electronically Signed: Evans Mann MD at 17:19 EST , Abdomen/Pelvis CT 04/26/22 10:03 IMPRESSION: Diffuse retroperitoneal lymphadenopathy as well as pelvic lymphadenopathy. Lymph nodes are also seen in the root of the mesentery. Small volume ascites. Bilateral pleural effusions right greater than left with bibasilar atelectasis. Diffuse subcutaneous edema. A LOPES catheter is seen with a decompressed urinary bladder. Electronically Signed: José Miguel Nguyen MD at 11:09 EST , Meaningful Use Info Meaningful Use Diagnoses (Choose all that apply): None applicable Discharge Plan Admission Admit Date/Time: 04/24/22 00:04 Attending Provider: Joseph Franco Primary Care Provider: Michael Kellogg Consulting Providers: Evans Hawley ; Mark Treviño ; Ana Deluca ; Dorothy Saxena ; Isacc Feliz ; Marilee Lowery ; Edie Cisneros ; Starla Cornelius NP Discharge Orders/Prescriptions Prescriptions: Continued amlodipine 2.5 mg tablet 2.5 mg PO DAILY Qty: 90 3RF atorvastatin 40 mg tablet 40 mg PO DAILY Qty: 90 3RF clopidogrel 75 mg tablet 75 mg PO DAILY Qty: 90 3RF metoprolol tartrate 25 mg tablet 25 mg PO BID Qty: 180 3RF aspirin [Adult Low Dose Aspirin] 81 mg tablet,delayed release (DR/EC) 81 mg PO DAILY Qty: 90 3RF megestrol 400 mg/10 mL (40 mg/mL) Suspension 200 mg PO 4X/DAY potassium chloride 10 mEq Capsule, Extended Release 10 meq PO DAILY sennosides-docusate sodium [Senna with Docusate Sodium] 8.6-50 mg Tablet 2 tab PO QHS PRN PRN (Reason: Constipation) docusate sodium [Colace] 100 mg Capsule 100 mg PO BID PRN PRN (Reason: Constipation) furosemide 20 mg Tablet 20 mg PO BID ondansetron 4 mg Tablet,Disintegrating 4 mg PO Q8H PRN PRN (Reason: Nausea) Jardiance 10 mg Tablet 10 mg PO DAILY doxycycline hyclate [Vibramycin] 100 mg Capsule 100 mg PO BID Label Comments: for 7 days started 04/20/22 amoxicillin-pot clavulanate 875-125 mg Tablet 1 tab PO Q12H Rx Instructions: x7 days started 04/20/22 pantoprazole 40 mg tablet,delayed release (DR/EC) 40 mg PO DAILY levothyroxine 100 mcg tablet 100 mcg PO DAILY fluticasone propionate [Allergy Relief (fluticasone)] 50 mcg/actuation spray,suspension 2 spray intranasal DAILY PRN (Reason: allergies) Rx Instructions: administer into each nostril Referrals / Follow Up: Michael Kellogg MD [Primary Care Provider] - Disposition Disposition (needs filled in before D/C Order can be placed): Hospice in Medical Facility Charges/Coding Visit Charges Inpatient E&M: 24696 Disch Hosp
== END 2022-04-26 20:39 | disposition hospice, inpatient (51) | DRG 871 ==
LOC: ED 23:03 → MS3 04-24 00:39
PROVIDERS: Admitting Provider Family Medicine; Emergency Provider Emergency Medicine; PCP Internal Medicine; Visit Provider Family Medicine
DX: A41.9 Sepsis, unspecified organism (principal); J18.9 Pneumonia, unspecified organism; R65.21 Severe sepsis with septic shock; N17.9 Acute kidney failure, unspecified; C49.9 Malignant neoplasm of connective and soft tissue, unspecified; C77.9 Secondary and unspecified malignant neoplasm of lymph node, unspecified; C34.31 Malignant neoplasm of lower lobe, right bronchus or lung; C78.7 Secondary malignant neoplasm of liver and intrahepatic bile duct; K74.60 Unspecified cirrhosis of liver; E78.2 Mixed hyperlipidemia; I10 Essential (primary) hypertension; E03.9 Hypothyroidism, unspecified; I25.10 Atherosclerotic heart disease of native coronary artery without angina pectoris; K21.9 Gastro-esophageal reflux disease without esophagitis; N50.89 Other specified disorders of the male genital organs; Z79.02 Long term (current) use of antithrombotics/antiplatelets; Z79.890 Hormone replacement therapy; Z79.899 Other long term (current) drug therapy; N39.41 Urge incontinence
CPT/HCPCS: 36415; 71045; 74176; 80048; 80053; 80202; 83880; 84484; 85025; 85610; 87040; 87428; 93005; 97162; 97802; 99283; J7030; J7040; A4216; J2405